=== PATIENT | female | born 1950 | race Caucasian/White ===

== ENCOUNTER → 2018-08-28 07:30 | Outpatient (CLI) | payer OTHER, SELFPAY ==
[2018-08-28 08:12] LABS: Add Manual Diff / Slide Review NO; Basophils Percent Auto 0.6 % (0-2); Eosinophils Percent Auto 2.6 % (2-4); Hematocrit 42.3 % (36-46); Hemoglobin 14.5 g/dL (12.0-16.0); Lymphocytes Percent Auto 50.6 % (25-40); Mean Corpuscular HGB Conc 34.2 % (30-36); Mean Corpuscular Hemoglobin 31.9 PG (26-34); Mean Corpuscular Volume 93.4 fL (80-100); Monocytes Percent Auto 9.1 % (3-14); Neutrophils Absolute Auto 2100 /uL (3000-5900); Neutrophils Percent Auto 37.1 % (50-75); Platelet Count 267 X10^3/uL (150-400); Red Blood Cell Count 4.53 X10^6/uL (4.0-5.2); White Blood Cell Count 5.5 X10^3/uL (4.5-11.0)
[2018-08-28 08:31] LABS: Alanine Aminotransferase 20 IU/L (9-52); Albumin 4.5 g/dL (3.5-5.0); Albumin Globulin Ratio 1.5 (1.0-2.8); Alkaline Phosphatase 74 U/L (38-126); Aspartate Aminotransferase 26 IU/L (14-36); BUN Creatinine Ratio 17.5 (6-22); Bilirubin Total 0.6 mg/dL (0.2-1.3); Blood Urea Nitrogen 14 mg/dL (7-17); Calcium 9.5 mg/dL (8.4-10.2); Carbon Dioxide 29 mmol/L (22-32); Chloride 103 mmol/L (98-107); Estimated Glomerular Filt Rate > 60.0 mL/min (>60); Glucose 97 mg/dL (80-110); HEMOLYSIS < 15 (0-50); Potassium 4.9 mmol/L (3.4-5.1); Sodium 143 mmol/L (137-145); Total Protein 7.5 g/dL (6.3-8.2)
[2018-08-28 08:52] LABS: Free T3, Triiodothyronine Free 2.83 pg/mL (2.77-5.27); Free T4, Direct Thyroxine 1.12 ng/dL (0.78-2.19)
[2018-08-28 09:06] LABS: Thyroid Stimulating Hormone 0.59 uIU/mL (0.47-4.68)
[2018-08-28 09:12] LABS: Ferritin 48.3 ng/mL (11.1-264)
[2018-08-28 09:26] LABS: Vitamin B12 > 1000 pg/mL (239-931)
== END ==
PROVIDERS: Visit Provider Naturopath
DX: E55.9 Vitamin D deficiency, unspecified (principal)
CPT/HCPCS: 36415; 80053; 82607; 82728; 83735; 84439; 84443; 84481; 85025; 86900; 86901

== ENCOUNTER → 2020-05-09 19:18 | Outpatient (ROUT) | payer OTHER, SELFPAY ==
[2020-05-09 19:35] LABS: Add Manual Diff / Slide Review NO; Basophils Absolute Auto 0 /uL (0-100); Basophils Percent Auto 0.3 % (0-2); Eosinophils Absolute Auto 100 /uL (0-450); Eosinophils Percent Auto 1.5 % (2-4); Hematocrit 40.3 % (36-46); Hemoglobin 13.7 g/dL (12.0-16.0); Lymphocytes Absolute Auto 2700 /uL (1100-4500); Lymphocytes Percent Auto 39.1 % (25-40); Mean Corpuscular HGB Conc 33.9 % (30-36); Mean Corpuscular Hemoglobin 32.2 PG (26-34); Mean Corpuscular Volume 95.2 fL (80-100); Monocytes Absolute Auto 600 /uL (0-900); Monocytes Percent Auto 8.3 % (3-14); Neutrophils Absolute Auto 3500 /uL (1500-7000); Neutrophils Percent Auto 50.8 % (50-75); Platelet Count 268 X10^3/uL (150-400); Red Blood Cell Count 4.24 X10^6/uL (4.0-5.2); White Blood Cell Count 6.9 X10^3/uL (4.5-11.0)
[2020-05-09 19:43] LABS: Uric Acid 3.9 mg/dL (2.5-6.2)
[2020-05-09 19:51] LABS: C-Reactive Protein Quant < 0.5 mg/dL (<1.0)
[2020-05-09 20:15] LABS: Erythrocyte Sedimentation Rate 4 MM/HR (0-20)
[2020-05-10 16:37] LABS: Rheumatoid Factor < 8.6 IU/mL (<12.0)
== END ==
PROVIDERS: Family Provider Internal Medicine; PCP Internal Medicine; Visit Provider Physician Assistant
DX: M79.644 Pain in right finger(s) (principal)
CPT/HCPCS: 84550; 85025; 85651; 86140; 86430

== ENCOUNTER → 2020-10-26 07:44 | Outpatient (CLI) | payer OTHER, SELFPAY ==
[2020-10-26 08:20] LABS: Add Manual Diff / Slide Review NO; Basophils Absolute Auto 0 /uL (0-100); Basophils Percent Auto 0.7 % (0-2); Eosinophils Absolute Auto 100 /uL (0-450); Eosinophils Percent Auto 2.4 % (2-4); Hematocrit 43.9 % (36-46); Hemoglobin 14.4 g/dL (12.0-16.0); Lymphocytes Absolute Auto 3300 /uL (1100-4500); Mean Corpuscular HGB Conc 32.8 % (30-36); Mean Corpuscular Hemoglobin 31.7 PG (26-34); Mean Corpuscular Volume 96.7 fL (80-100); Monocytes Absolute Auto 500 /uL (0-900); Monocytes Percent Auto 7.5 % (3-14); Neutrophils Absolute Auto 2100 /uL (1500-7000); Neutrophils Percent Auto 35.4 % (50-75); Platelet Count 256 X10^3/uL (150-400); Red Blood Cell Count 4.54 X10^6/uL (4.0-5.2); Red Cell Distribution Width 13.1 % (11.6-14.8); White Blood Cell Count 6.1 X10^3/uL (4.5-11.0)
[2020-10-26 08:35] LABS: Alanine Aminotransferase 13 IU/L (<35); Albumin 4.2 g/dL (3.5-5.0); Albumin Globulin Ratio 1.6 (1.0-2.8); Alkaline Phosphatase 81 U/L (38-126); Aspartate Aminotransferase 23 IU/L (14-36); BUN Creatinine Ratio 17.4 (6-22); Bilirubin Total 0.7 mg/dL (0.2-1.3); Blood Urea Nitrogen 15 mg/dL (7-17); Calcium 9.7 mg/dL (8.4-10.2); Carbon Dioxide 30 mmol/L (22-32); Chloride 103 mmol/L (98-107); Cholesterol 244 mg/dL (140-199); Estimated Glomerular Filt Rate > 60.0 mL/min (>60); Globulin 2.7 g/dL (1.7-4.1); Glucose 94 mg/dL (80-110); HDL Cholesterol 91 mg/dL (40-60); HEMOLYSIS < 15 (0-50); LDL Cholesterol Calculated 138 mg/dL (<100); Potassium 4.3 mmol/L (3.4-5.1); Sodium 136 mmol/L (137-145); Total Protein 6.9 g/dL (6.3-8.2); Triglycerides 74 mg/dL (35-150)
== END ==
PROVIDERS: Family Provider Internal Medicine; PCP Physician Assistant; Referring Provider Physician Assistant; Visit Provider Physician Assistant
DX: Z13.9 Encounter for screening, unspecified (principal)
CPT/HCPCS: 36415; 80053; 80061; 85025

== ENCOUNTER → 2021-01-02 12:39 | Outpatient (CLI) | payer OTHER, SELFPAY ==
--- NOTE | 2021-01-02 12:42 | DI.US.S_ITS ---
PROCEDURE: US PELVIC COMPLETE INDICATIONS: PRESSURE TECHNIQUE: Real-time scanning was performed of the pelvic organs, with image documentation. Additional endovaginal scanning was necessary due to incomplete visualization of the adnexal and endometrial structures by transabdominal scanning. COMPARISON: None. FINDINGS: Uterus: Uterus is normal in size at 5.7 x 2.2 x 4.1 cm. The endometrium measures 3.6 mm in combined thickness. Complex endometrial endocervical fluid. Ovaries: Ovaries are normal bilaterally. No adnexal masses seen. Other: No pathologic free abdominal or pelvic fluid. IMPRESSION: Small amount of endometrial and endocervical complex free fluid; otherwise normal endometrial complex and no source for pelvic pressure is identified. Recommend short-term follow-up pelvic ultrasound in 6 weeks to assess for interval resolution. Dictated by: Florentino Still [facility] Interpreted: Zunilda Liu MD on 01/02/2021 at 14:48 Approved by: Zunilda Liu MD, PhD on 01/02/2021 at 15:56
[2021-01-02 13:30] LABS: Add Manual Diff / Slide Review NO; Basophils Absolute Auto 0 /uL (0-100); Basophils Percent Auto 0.6 % (0-2); Eosinophils Absolute Auto 100 /uL (0-450); Hematocrit 42.1 % (36-46); Hemoglobin 14.6 g/dL (12.0-16.0); Lymphocytes Absolute Auto 2000 /uL (1100-4500); Lymphocytes Percent Auto 29.9 % (25-40); Mean Corpuscular HGB Conc 34.6 % (30-36); Mean Corpuscular Volume 95.3 fL (80-100); Monocytes Absolute Auto 800 /uL (0-900); Monocytes Percent Auto 11.3 % (3-14); Neutrophils Absolute Auto 3900 /uL (1500-7000); Neutrophils Percent Auto 57.2 % (50-75); Platelet Count 223 X10^3/uL (150-400); Red Blood Cell Count 4.42 X10^6/uL (4.0-5.2); Red Cell Distribution Width 12.6 % (11.6-14.8); White Blood Cell Count 6.8 X10^3/uL (4.5-11.0)
[2021-01-02 13:34] LABS: Appearance Urine UA CLEAR; Bilirubin Urine UA NEGATIVE (NEGATIVE); Color Urine UA YELLOW; Glucose Urine UA NEGATIVE (Negative); Ketones Urine UA TRACE (NEGATIVE); Leukocyte Esterase Urine UA NEGATIVE (NEGATIVE); Nitrite Urine UA NEGATIVE (Negative); Occult Blood Urine UA 1+ (Negative); Protein Urine UA NEGATIVE (Negative); Specific Gravity Urine UA >=1.030 (1.000-1.035); Urobilinogen Urine UA 0.2 E.U./dL (0.2)
[2021-01-02 13:42] LABS: Amorphous Sediment Urine 1+; Bacteria Urine Occasional (0-1); Mucus Urine 1+ (Negative); RBC Urine 1-5/HPF (0-5/HPF); Squamous Epithelial Cell Urine 5-10 /HPF (0-5/HPF); WBC Urine 1-5/HPF (0-5/HPF)
[2021-01-02 13:44] LABS: Alanine Aminotransferase 12 IU/L (<35); Albumin 4.4 g/dL (3.5-5.0); Albumin Globulin Ratio 1.5 (1.0-2.8); Alkaline Phosphatase 85 U/L (38-126); Aspartate Aminotransferase 25 IU/L (14-36); Bilirubin Total 0.3 mg/dL (0.2-1.3); Blood Urea Nitrogen 21 mg/dL (7-17); Calcium 9.6 mg/dL (8.4-10.2); Carbon Dioxide 28 mmol/L (22-32); Chloride 100 mmol/L (98-107); Cholesterol 230 mg/dL (140-199); Estimated Glomerular Filt Rate > 60.0 mL/min (>60); Globulin 2.9 g/dL (1.7-4.1); Glucose 109 mg/dL (80-110); HDL Cholesterol 66 mg/dL (40-60); HEMOLYSIS < 15 (0-50); LDL Cholesterol Calculated 136 mg/dL (<100); Potassium 4.3 mmol/L (3.4-5.1); Sodium 135 mmol/L (137-145); Total Protein 7.3 g/dL (6.3-8.2); Triglycerides 140 mg/dL (35-150)
[2021-01-02 14:19] LABS: Cancer Antigen 125 < 5.5 U/mL (0-35)
== END ==
PROVIDERS: Family Provider Internal Medicine; PCP Physician Assistant; Referring Provider Physician Assistant; Visit Provider Physician Assistant
DX: R10.2 Pelvic and perineal pain (principal); E78.00 Pure hypercholesterolemia, unspecified
CPT/HCPCS: 36415; 76830; 76856; 80053; 80061; 81001; 85025; 86304; 87086

== ENCOUNTER → 2021-06-21 07:51 | Outpatient (CLI) | payer OTHER, SELFPAY | PROVIDERS: Family Provider Physician Assistant; PCP Physician Assistant; Visit Provider Physician Assistant | DX: N39.0 Urinary tract infection, site not specified (principal) | CPT/HCPCS: 87077; 87086; 87186 ==

== ENCOUNTER → 2021-08-16 09:56 | Outpatient (CLI) | payer OTHER, SELFPAY ==
--- NOTE | 2021-08-16 09:57 | DI.MG.S_ITS ---
BILATERAL DIGITAL SCREENING MAMMOGRAM 3D/2D WITH CAD: 08/16/2021 CLINICAL: Routine screening. Comparison is made to exams dated: 06/15/2020 mammogram, 01/12/2019 mammogram, and 12/27/2017 mammogram - [facility]. The tissue of both breasts is heterogeneously dense. This may lower the sensitivity of mammography. Current study was also evaluated with a Computer Aided Detection (CAD) system. No significant masses, calcifications, or other findings are seen in either breast. There has been no significant interval change. IMPRESSION: NEGATIVE There is no mammographic evidence of malignancy. A 1 year screening mammogram is recommended. This exam was interpreted at Station ID: [id number]. NOTE: For mammograms, a report in lay terms will be sent to the patient. Approximately 15% of breast malignancies will not be visualized mammographically. In the management of a palpable breast mass, a negative mammogram must not discourage biopsy of a clinically suspicious lesion. Electronically Signed By: Henrique coombs/elmer:08/16/2021 11:16:04 letter sent: Normal Exam ACR BI-RADS Category 1: Negative [id number]
== END ==
PROVIDERS: Family Provider Physician Assistant; PCP Physician Assistant; Referring Provider Physician Assistant; Visit Provider Physician Assistant
DX: Z12.31 Encounter for screening mammogram for malignant neoplasm of breast (principal)
CPT/HCPCS: 77063; 77067

== ENCOUNTER 2021-09-04 11:15 | Outpatient (RCR) | payer OTHER, SELFPAY ==
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
--- NOTE | 2021-06-15 10:20 | PT.OPPOC ---
Physical, Occupational & Speech Therapy At [facility] Current Diagnoses Impingement syndrome of right shoulder (06/15/21) Visit Care Team Role Provider Type Klaudia Dominguez PA-C Family Provider Non-Staff Primary Care Provider Specialty: Internal Medicine Address: [address] [place] [address], [id number] Email: [email or web address] Geraldo Alvarez MD Attending Provider Physician Referring Provider Specialty: Orthopedic Surgery Address: [address] [place] [address], [id number] Email: [email or web address] Plan Of Care PT-OP-T Assessment and Plan Start: 06/15/21 10:00 Freq: Status: Active Protocol: Document 06/15/21 10:00 (Rec: 06/15/21 10:20 [email or web address]) Physical Therapy Assessment Rehab Potential Rehabilitation Potential Excellent Evaluation Complexity Number of Personal Factors/Comorbidities 0 Number of Body Systems Impaired 1-2 Clinical Presentation at Evaluation Stable Impairments Impairments Functional Activities, Functional Mobility,Pain, Posture,ROM,Soft Tissue Mobility,Strength Goals return to sports Impairment discomfort during golfing, paddle boarding and mountain biking Short Term Goal (STG) pt will show improved R shoulder strength and stability to reach overhead without painful arc sign STG Duration 3 weeks Usp Goal (LTG) pt will be able to fully return to sports without discomfort LTG Duration 6 weeks rom Impairment decreased R shoulder ROM Short Term Goal (STG) pt will show improved R shoulder ROM by 20 degrees in all plane without pain STG Duration 3 weeks Coating Operator Goal (LTG) pt will be able to reach for cupboard and behind her back without discomfort. LTG Duration 6 weeks Quickdash Impairment pt scores 54 on quickdash Short Term Goal (STG) pt will show improve shoulder mobility and strength to score <30 on quickdash STG Duration 3 weeks Usp Goal (LTG) pt will show improve shoulder mobility and strength to score <20 on quickdash LTG Duration 6 weeks Assessment Summary Assessment Abbey is 70yo active and healthy female here for R shoulder pain since mid-April. Upon assessment, pt shows signs of R shoulder impingement who is painful in all closed pack position (ABD, ADD, ER and IR) possibly d/t her significant anterior translated humerus. Her pain and ROM immediately improved after posterior glide of GHJ mobilization. She will benefit from skilled therapy to improve shoulder ROM and strengthen her RTC to stabilize her humeral head therefore she can participate paddle boarding, golfing and ADLs without discomfort again. Physical Therapy Plan Frequency and Duration Frequency of Treatment 1-2x/wk Duration of Treatment 6 weeks Plan of Care Start Date 06/15/21 Plan of Care End Date 07/30/21 Therapeutic Interventions Therapeutic Interventions Home Exercise Program,Joint Mobilizations,Manual Therapy, Neuromuscular Re-education, Patient/Caregiver Education, Self-Care/Home Management,Soft Tissue Mobilization,Taping, Therapeutic Activities, Therapeutic Exercises Modalities Cold Pack/Ice Massage,Electric Stimulation,Hot Packs, Infrared Therapy,Ultrasound Next Visit Focus/Plan Next Note Type Treatment Note Next Visit Plan review her HEP STM on pecs, and RTC post glide of humeral head. SL shoulder ER Plan of Care Dates Plan of Care Start Date 06/15/21 Plan of Care End Date 07/30/21 Electronically Signed by: Christina Nowak, PT 06/15/21 1020 Please Sign and Return: I have reviewed this Plan of Care and certify that the skilled therapy services above are required to meet the patient?s needs. Physician Signature Date Printed Name and Credentials Clinical Instructor Signature Printed Name and Credentials
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
--- NOTE | 2021-08-16 09:11 | PT.OPPOC ---
Physical, Occupational & Speech Therapy At [facility] Current Diagnoses Impingement syndrome of right shoulder (08/16/21) Visit Care Team Role Provider Type Klaudia Dominguez PA-C Family Provider Non-Staff Primary Care Provider Specialty: Internal Medicine Address: [address] [place] [address], [id number] Email: [email or web address] Geraldo Alvarez MD Attending Provider Physician Referring Provider Specialty: Orthopedic Surgery Address: [address] [place] [address], [id number] Email: [email or web address] Plan Of Care PT-OP-T Assessment and Plan Start: 06/15/21 10:00 Freq: Status: Active Protocol: Document 08/16/21 08:14 HH (Rec: 08/16/21 09:10 HH [id number]) Physical Therapy Assessment Goals return to sports Impairment discomfort during golfing, paddle boarding and mountain biking Short Term Goal (STG) 08/16 pt shows improved shoulder strength and ROM but still has painful arc. pt will show improved R shoulder strength and stability to reach overhead without painful arc sign STG Duration 3 weeks Hatchery Helper Goal (LTG) pt will be able to fully return to sports without discomfort LTG Duration 6 weeks rom Impairment decreased R shoulder ROM Short Term Goal (STG) 08/16 goal met pt will show improved R shoulder ROM by 20 degrees in all plane without pain STG Duration 3 weeks Hatchery Helper Goal (LTG) pt will be able to reach for cupboard and behind her back without discomfort. LTG Duration 6 weeks Quickdash Impairment pt scores 54 on quickdash Short Term Goal (STG) pt will show improve shoulder mobility and strength to score <30 on quickdash STG Duration 3 weeks Nursing Home Goal (LTG) pt will show improve shoulder mobility and strength to score <20 on quickdash LTG Duration 6 weeks Assessment Summary Assessment pt was last seen 07/07 d/t vacation. She returned today with good progress on ROM and strength but still has impingement symptoms. Although She has been doing moLiquidnetin biking and crosscountry skiiing, she still has difficulty reaching behind her back. There's still obvious anterior head translation with overhead reaching. This session focused on mobilizing posterior capsule and her ROM has significant improved. Provided lat stretch and post capsule stretch. Expect to DC her in 2 weeks. Physical Therapy Plan Frequency and Duration Frequency of Treatment 1-2x/wk Duration of Treatment 6 weeks Plan of Care Start Date 08/16/21 Plan of Care End Date 09/30/21 Therapeutic Interventions Therapeutic Interventions Home Exercise Program,Joint Mobilizations,Manual Therapy, Neuromuscular Re-education, Patient/Caregiver Education, Self-Care/Home Management,Soft Tissue Mobilization,Taping, Therapeutic Activities, Therapeutic Exercises Next Visit Focus/Plan Next Note Type Treatment Note Next Visit Plan review her HEP STM on pecs, and RTC post glide of humeral head. issue HEP for week by week progression due to pt leaving [facility] x4 weeks Plan of Care Dates Plan of Care Start Date 08/16/21 Plan of Care End Date 09/30/21 Electronically Signed by: Christina Nowak, PT 08/16/21 0992 Please Sign and Return: I have reviewed this Plan of Care and certify that the skilled therapy services above are required to meet the patient?s needs. Physician Signature Date Printed Name and Credentials Clinical Instructor Signature Printed Name and Credentials
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
== END 2021-11-14 09:32 ==
LOC: PHYS 11:15
PROVIDERS: Family Provider Physician Assistant; PCP Physician Assistant; Referring Provider Orthopaedic Surgery; Visit Provider Orthopaedic Surgery
DX: M75.41 Impingement syndrome of right shoulder (principal)
CPT/HCPCS: 97110; 97140; 97161

== ENCOUNTER → 2022-08-23 09:16 | Outpatient (CLI) | payer OTHER, SELFPAY ==
--- NOTE | 2022-08-23 09:17 | DI.MG.S_ITS ---
BILATERAL DIGITAL SCREENING MAMMOGRAM 3D/2D WITH CAD: 08/23/2022 CLINICAL: Routine screening. Comparison is made to exams dated: 08/16/2021 mammogram - [facility], 06/15/2020 mammogram, and 01/12/2019 mammogram - [facility]. Both breasts are heterogeneously dense, which may obscure small masses (category c / 51-75% glandular tissue). Current study was also evaluated with a Computer Aided Detection (CAD) system. There are linear fine rim calcifications in the right breast at 8 o'clock middle depth. These are increased in number. No other significant masses, calcifications, or other findings are seen in either breast. IMPRESSION: INCOMPLETE: NEEDS ADDITIONAL IMAGING EVALUATION The linear fine rim calcifications in the right breast are indeterminate. Magnification views as well as additional views with possible ultrasound are recommended. Based on the Tyrer Cuzick model (a risk assessment model) the patient's lifetime risk is 8.7% and her 10 year risk is 6.5%. According to the ACR, ACS, and NCCN guidelines, an annual breast MRI exam along with mammogram is recommended if the patient's lifetime risk is 20% or greater. This exam was interpreted at Station ID: [id number]. NOTE: For mammograms, a report in lay terms will be sent to the patient. Approximately 15% of breast malignancies will not be visualized mammographically. In the management of a palpable breast mass, a negative mammogram must not discourage biopsy of a clinically suspicious lesion. Electronically Signed By: Lauren briggs/elmer:08/23/2022 13:29:25 letter sent: Additional Imaging Needed ACR BI-RADS Category 0: Incomplete [id number]
== END ==
PROVIDERS: Family Provider Physician Assistant; PCP Physician Assistant; Referring Provider Physician Assistant; Visit Provider Physician Assistant
DX: Z12.31 Encounter for screening mammogram for malignant neoplasm of breast (principal)
CPT/HCPCS: 77063; 77067

== ENCOUNTER → 2022-09-28 10:14 | Outpatient (CLI) | payer OTHER, SELFPAY ==
--- NOTE | 2022-09-28 | DI.MG.S_ITS ---
UNILATERAL RIGHT DIGITAL DIAGNOSTIC MAMMOGRAM 3D/2D WITH ADDITIONAL VIEWS: 09/28/2022 CLINICAL: Additional evaluation requested from prior study. Comparison is made to exams dated: 08/23/2022 mammogram, 08/16/2021 mammogram - [facility], and 06/15/2020 mammogram - [facility]. The right breast is heterogeneously dense, which may obscure small masses (category c / 51-75% glandular tissue). There are linear fine rim calcifications in the right breast at 8 o'clock middle depth. These are not significantly changed. No other significant masses or calcifications are seen in the breast. IMPRESSION: PROBABLY BENIGN The linear fine rim calcifications in the right breast are probably benign. A follow-up mammogram in 6 months is recommended. A follow-up mammogram in 6 months is recommended to demonstrate stability. Based on the Tyrer Cuzick model (a risk assessment model) the patient's lifetime risk is 8.7% and her 10 year risk is 6.5%. According to the ACR, ACS, and NCCN guidelines, an annual breast MRI exam along with mammogram is recommended if the patient's lifetime risk is 20% or greater. This exam was interpreted at Station ID: [id number]. NOTE: For mammograms, a report in lay terms will be sent to the patient. Approximately 15% of breast malignancies will not be visualized mammographically. In the management of a palpable breast mass, a negative mammogram must not discourage biopsy of a clinically suspicious lesion. Electronically Signed By: Prabhu Hudson M.D., jr/elmer:09/28/2022 10:31:28 letter sent: Followup Recommended ACR BI-RADS Category 3: Probably benign [id number]
== END ==
PROVIDERS: Family Provider Physician Assistant; PCP Physician Assistant; Referring Provider Physician Assistant; Visit Provider Physician Assistant
DX: R92.8 Other abnormal and inconclusive findings on diagnostic imaging of breast (principal); R92.1 Mammographic calcification found on diagnostic imaging of breast
CPT/HCPCS: 77065; G0279

== ENCOUNTER → 2023-08-24 10:08 | Outpatient (CLI) | payer OTHER, SELFPAY ==
[2023-08-24 11:21] LABS: Influenza A - CEPHEID Flu A NEGATIVE (NEGATIVE); Influenza B - CEPHEID Flu B NEGATIVE (NEGATIVE); Respiratory Syncytial Virus Negative (Negative)
[2023-08-24 11:33] LABS: COVID-19 CEPHEID 4-PLEX PCR POSITIVE (Negative)
== END ==
PROVIDERS: Family Provider Physician Assistant; PCP Physician Assistant; Visit Provider Registered Nurse
DX: J02.9 Acute pharyngitis, unspecified (principal)
CPT/HCPCS: 0241U

== ENCOUNTER → 2023-12-16 06:37 | Outpatient (CLI) | payer OTHER, SELFPAY ==
[2023-12-16 07:43] LABS: Add Manual Diff / Slide Review NO; Basophils Absolute Auto 0 /uL (0-100); Basophils Percent Auto 0.7 % (0-2); Eosinophils Absolute Auto 100 /uL (0-450); Eosinophils Percent Auto 2.3 % (2-4); Hematocrit 42.8 % (36-46); Hemoglobin 14.5 g/dL (12.0-16.0); Lymphocytes Absolute Auto 2900 /uL (1100-4500); Lymphocytes Percent Auto 48.1 % (25-40); Mean Corpuscular HGB Conc 33.9 % (30-36); Mean Corpuscular Hemoglobin 31.8 PG (26-34); Mean Corpuscular Volume 93.9 fL (80-100); Monocytes Absolute Auto 600 /uL (0-900); Monocytes Percent Auto 9.6 % (3-14); Neutrophils Absolute Auto 2300 /uL (1500-7000); Neutrophils Percent Auto 39.3 % (50-75); Platelet Count 251 X10^3/uL (150-400); Red Blood Cell Count 4.56 X10^6/uL (4.0-5.2); Red Cell Distribution Width 13.1 % (11.6-14.8)
[2023-12-16 08:02] LABS: Alanine Aminotransferase 15 IU/L (<35); Albumin Globulin Ratio 1.2 (1.0-2.8); Alkaline Phosphatase 77 U/L (38-126); Aspartate Aminotransferase 28 IU/L (14-36); BUN Creatinine Ratio 22.5 (6-22); Bilirubin Total 0.9 mg/dL (0.2-1.3); Blood Urea Nitrogen 18 mg/dL (7-17); Calcium 9.3 mg/dL (8.4-10.2); Carbon Dioxide 27 mmol/L (22-32); Chloride 108 mmol/L (98-107); Cholesterol 235 mg/dL (140-199); Estimated Glomerular Filt Rate > 60 mL/min (>60); Globulin 3.4 g/dL (1.7-4.1); Glucose 92 mg/dL (80-110); HDL Cholesterol 74 mg/dL (40-60); HEMOLYSIS 30 (0-50); LDL Cholesterol Calculated 148 mg/dL (<100); Potassium 4.3 mmol/L (3.4-5.1); Sodium 138 mmol/L (137-145); Total Protein 7.4 g/dL (6.3-8.2); Triglycerides 63 mg/dL (35-150)
[2023-12-16 08:15] LABS: Vitamin D 25 Hydroxy (D3) 49.6 ng/mL (30.0-100.0)
== END ==
PROVIDERS: Family Provider Physician Assistant; PCP Student in an Organized Health Care Education/Training Program; Referring Provider Student in an Organized Health Care Education/Training Program; Visit Provider Student in an Organized Health Care Education/Training Program
DX: E78.5 Hyperlipidemia, unspecified (principal); M85.80 Other specified disorders of bone density and structure, unspecified site
CPT/HCPCS: 36415; 80053; 80061; 82306; 85025

== ENCOUNTER → 2024-05-19 14:16 | Outpatient (CLI) | payer OTHER, SELFPAY ==
--- NOTE | 2024-05-19 | DI.CT.S_ITS ---
PROCEDURE: CT SINUS SCREEN WO CON INDICATIONS: CHRONIC PANSINUSITIS, POST NASAL DRIP, THROAT CLEARING TECHNIQUE: Noncontrast 3.0 mm axial images acquired from the frontal sinuses to the mid-sella, with coronal and sagittal reformats. For radiation dose reduction, the following was used: automated exposure control, adjustment of mA and/or kV according to patient size. COMPARISON: None. FINDINGS: Image quality: Excellent. Maxillary Sinuses: No bony remodeling or destruction. Sinuses are clear. Ethmoid Air Cells: No bony remodeling or destruction. Minimal mucosal thickening can be seen within the ethmoid air cells. Sphenoid Sinuses: No bony remodeling or destruction. Sinuses are clear. Frontal Sinuses: No bony remodeling or destruction. Sinuses are clear. Ostiomeatal Complexes: Ostiomeatal complexes are patent. No Emani cells. Miscellaneous: Visualized intra-orbital contents are normal. No inocencio bullosa or paradoxical turbinate curvature. No nasal septal deviation. IMPRESSION: No significant abnormality is seen, with minimal mucosal thickening noted within the ethmoid air cells. Dictated by: Michael Solares M.D. on 05/19/2024 at 16:38 Approved by: Michael Solares M.D. on 05/19/2024 at 16:39
== END ==
LOC: CT 14:17
PROVIDERS: Family Provider Physician Assistant; PCP Family Medicine; Referring Provider Otolaryngology; Visit Provider Otolaryngology
DX: J32.4 Chronic pansinusitis (principal); R09.82 Postnasal drip; R09.89 Other specified symptoms and signs involving the circulatory and respiratory systems; R53.83 Other fatigue; Z86.16 Personal history of COVID-19
CPT/HCPCS: 70486

== ENCOUNTER 2025-02-14 16:44 | Emergency (ER) | payer OTHER, SELFPAY ==
[2025-02-14] VITALS (16 sets, daily range): BP systolic 161–209; BP diastolic 77–98; PULSE 55–70; RESP 16–34; O2SAT 96–100; BMI 20.1
[2025-02-14 17:23] LABS: Add Manual Diff / Slide Review NO; Basophils Absolute Auto 0 /uL (0-100); Basophils Percent Auto 0.6 % (0-2); Eosinophils Absolute Auto 200 /uL (0-450); Hematocrit 42.2 % (36-46); Hemoglobin 14.3 g/dL (12.0-16.0); Lymphocytes Absolute Auto 2900 /uL (1100-4500); Lymphocytes Percent Auto 38.5 % (25-40); Mean Corpuscular Hemoglobin 32.2 PG (26-34); Mean Corpuscular Volume 94.8 fL (80-100); Monocytes Absolute Auto 700 /uL (0-900); Monocytes Percent Auto 8.9 % (3-14); Neutrophils Absolute Auto 3800 /uL (1500-7000); Platelet Count 253 X10^3/uL (150-400); Red Blood Cell Count 4.45 X10^6/uL (4.0-5.2); Red Cell Distribution Width 13.3 % (11.6-14.8); White Blood Cell Count 7.6 X10^3/uL (4.5-11.0)
[2025-02-14] MEDS: KETOROLAC 30 MG/ML VIAL 15 MG IV (17:25)
[2025-02-14 17:37] LABS: Alanine Aminotransferase 18 IU/L (<35); Albumin 4.3 g/dL (3.5-5.0); Albumin Globulin Ratio 1.6 (1.0-2.8); Alkaline Phosphatase 91 U/L (38-126); Aspartate Aminotransferase 28 IU/L (14-36); BUN Creatinine Ratio 24.2 (6-22); Bilirubin Total 0.3 mg/dL (0.2-1.3); Blood Urea Nitrogen 22 mg/dL (7-17); Calcium 9.4 mg/dL (8.4-10.2); Carbon Dioxide 28 mmol/L (22-32); Chloride 103 mmol/L (98-107); Estimated Glomerular Filt Rate > 60 mL/min (>60); Globulin 2.7 g/dL (1.7-4.1); Glucose 118 mg/dL (70-99); HEMOLYSIS < 15 (0-50); Lipase 210 U/L (23-300); Potassium 3.7 mmol/L (3.4-5.1); Sodium 138 mmol/L (137-145)
[2025-02-14] MEDS: ONDANSETRON 4 MG/2 ML INJ IV ×2 (17:43→20:52)
[2025-02-14] MEDS: HYDROMORPHONE 0.5 MG INJ IV (17:56)
--- NOTE | 2025-02-14 18:12 | ED.BACK ---
HPI - Back Pain/Injury General Chief Complaint: Back Pain/Injury Stated Complaint: back px moving to left side and center of body Time Seen by Provider: 02/14/25 18:11 History of Present Illness HPI Narrative: 74-year-old female presents with left flank pain started on on the right back from [facility] and then radiates to the left groin region thought it was her SI joint went to see the massage therapist on Saturday but got worse since then she has had a few episodes of nonbilious nonbloody nausea and vomiting. She did have a bowel movement earlier today that was normal and she did eat earlier but denies any chest pain shortness of breath hematuria dysuria or any history of kidney stone. Other than what is stated 14 point review of system is negative Related Data Home Medications Medication Instructions Recorded Confirmed estradiol 10 mcg vaginal tablet 10 mcg vaginal 2XW 08/24/23 04/02/24 Previous Rx's Medication Instructions Recorded hydrocodone 5 mg-acetaminophen 325 1 tab PO Q6H PRN pain #20 tabs 02/14/25 mg tablet ondansetron 4 mg disintegrating 4 mg PO Q6H PRN nausea and 02/14/25 tablet vomiting #30 tabs Allergies Allergy/AdvReac Type Severity Reaction Status Date / Time erythromycin base Allergy Unknown SWELLING/RA Verified 04/02/24 09:07 [ERYTHROMYCIN BASE] Review of Systems Review of Systems ROS Unobtainable: All systems reviewed & are unremarkable except as noted in HPI and below Patient History Medical History (Updated 02/14/25 @ 21:14 by Jose Alberto Gandhi, DO) Allergies (~1999) Osteopenia (~2020) Postmenopausal HRT (hormone replacement therapy) Hyperlipidemia Surgical History (Updated 04/14/24 @ 19:22 by Mago Lovell) Anesthesia Fracture, humerus (~2014) Spiral fracture of shaft of tibia (~1998) Fibula fracture (~1996) Radius fracture (~1984) Family History (Updated 04/14/24 @ 19:24 by Mago Lovell) Father Cancer Mother Cancer Brother Cancer Exam Narrative Exam Narrative: GENERAL: [74] year old patient appears stated age. Well-developed patient, in mild distress. HEAD: Atraumatic. Normocephalic. EYES: Pupils equal round and reactive. Extraocular motions intact. No scleral icterus. No injection or drainage. ENT: Nose without bleeding, purulent drainage. Throat without erythema, tonsillar hypertrophy or exudate. Airway patent. NECK: Trachea midline. Non tender CARDIOVASCULAR: Regular rate and rhythm without murmurs, gallops, or rubs. RESPIRATORY: Clear to auscultation. Breath sounds equal bilaterally. No wheezes, rales, or rhonchi. GASTROINTESTINAL: Abdomen soft, LLQ TTP but no r/r/g, nondistended. EXTREMITIES: No edema or joint tenderness. BACK: Nontender without deformity or crepitance. No flank tenderness. NEURO: AOx3. SKIN: No rash or erythema of visible areas Initial Vital Signs Initial Vital Signs: Vital Signs Pulse Rate 60 02/14/25 16:51 Respiratory Rate 16 02/14/25 16:51 Blood Pressure 169/81 H 02/14/25 16:51 Pulse Oximetry 97 02/14/25 16:51 Oxygen Delivery Method Room Air 02/14/25 16:51 Course Orders Ordered: ED Orders 02/14/25 17:05 Complete Blood Count AUTO DIFF Stat Comprehensive Metabolic Panel Stat Lipase Stat 02/14/25 18:20 CT abdomen pelvis w con Stat Ondansetron HCl (Ondansetron 4 Mg/2 Ml Inj) 4 mg IV NOW PRN PRN Reason: Nausea And Vomiting Last Admin: 02/14/25 17:43 Dose: 4 mg Documented By: PAMELLA Ondansetron HCl (Ondansetron 4 Mg Odt) 4 mg PO NOW PRN PRN Reason: Nausea And Vomiting Discontinued Medications Hydromorphone HCl (Hydromorphone 0.5 Mg Inj) 0.5 mg IV NOW ONE Stop: 02/14/25 17:53 Last Admin: 02/14/25 17:56 Dose: 0.5 mg Documented By: SPF Sodium Chloride (Normal Saline 0.9%) 1,000 mls @ 500 mls/hr IV BOLUS ONE Stop: 02/14/25 20:27 Last Admin: 02/14/25 18:29 Dose: Not Given Documented By: SPF Sodium Chloride (Normal Saline 0.9%) 1,000 mls @ 1,000 mls/hr IV BOLUS ONE Stop: 02/14/25 19:28 Last Infusion: 02/14/25 19:53 Dose: Infused Documented By: Admin: 02/14/25 18:36 Dose: 1,000 mls/hr Documented By: SPF Ketorolac Tromethamine (Ketorolac 30 Mg/Ml Vial) 15 mg IV NOW ONE Stop: 02/14/25 17:21 Last Admin: 02/14/25 17:25 Dose: 15 mg Documented By: PAMELLA Vital Signs Vital signs: Vital Signs - 8 hr 02/14/25 16:51 02/14/25 17:08 02/14/25 17:10 Pulse Rate 60 64 Respiratory Rate 16 Blood Pressure 169/81 H 206/98 H Pulse Oximetry 97 100 Oxygen Delivery Method Room Air 02/14/25 17:10 02/14/25 17:30 02/14/25 17:31 Pulse Rate 55 L 59 L 60 Respiratory Rate 17 19 Blood Pressure Pulse Oximetry 100 100 100 Oxygen Delivery Method Room Air Room Air 02/14/25 17:31 02/14/25 18:00 02/14/25 18:01 Pulse Rate 65 Respiratory Rate 24 Blood Pressure 209/90 H 181/87 H Pulse Oximetry 100 Oxygen Delivery Method 02/14/25 18:01 02/14/25 18:30 02/14/25 19:00 Pulse Rate 64 63 66 Respiratory Rate 34 H 20 Blood Pressure Pulse Oximetry 100 97 96 Oxygen Delivery Method Room Air Room Air MDM - Back Pain/Injury Lab Data 02/14/25 17:05 02/14/25 17:05 Labs: Lab Results 02/14/25 Range/Units 17:05 WBC 7.6 (4.5-11.0) X10^3/uL RBC 4.45 (4.0-5.2) X10^6/uL Hgb 14.3 (12.0-16.0) g/dL Hct 42.2 (36-46) % MCV 94.8 (80-100) fL MCH 32.2 (26-34) PG MCHC 34.0 (30-36) % RDW 13.3 (11.6-14.8) % Plt Count 253 (150-400) X10^3/uL Neut % (Auto) 50.0 (50-75) % Lymph % (Auto) 38.5 (25-40) % [place] % (Auto) 8.9 (3-14) % Eos % (Auto) 2.0 (2-4) % Baso % (Auto) 0.6 (0-2) % Neut # (Auto) 3800 (2898-7776) /uL Lymph # (Auto) 2900 (0500-8402) /uL [place] # (Auto) 700 (0-900) /uL Eos # (Auto) 200 (0-450) /uL Baso # (Auto) 0 (0-100) /uL Sodium 138 (137-145) mmol/L Potassium 3.7 (3.4-5.1) mmol/L Chloride 103 (98-107) mmol/L Carbon Dioxide 28 (22-32) mmol/L BUN 22 H (7-17) mg/dL Creatinine 0.91 (0.52-1.04) mg/dL Estimated GFR > 60 (>60) mL/min BUN/Creatinine Ratio 24.2 H (6-22) Glucose 118 H (70-99) mg/dL Calcium 9.4 (8.4-10.2) mg/dL Total Bilirubin 0.3 (0.2-1.3) mg/dL AST 28 (14-36) IU/L ALT 18 (<35) IU/L Alkaline Phosphatase 91 (38-126) U/L Total Protein 7.0 (6.3-8.2) g/dL Albumin 4.3 (3.5-5.0) g/dL Globulin 2.7 (1.7-4.1) g/dL Albumin/Globulin Ratio 1.6 (1.0-2.8) Lipase 210 (23-300) U/L Urine Dip Bedside Urine Glucose Negative Bedside Urine Bilirubin - Negative Bedside Urine Ketone +/- 5 Urine Specific [place] 1.005 Bedside Urine Occult Blood - Negative Bedside Urine pH 8.0 Bedside Urine Protein - Negative Bedside Urine Urobilinogen - Negative Bedside Urine Nitrite - Negative Bedside Urine Leukocytes - Negative Esterase Imaging Data CT scan - abdomen/pelvis: Radiologist's Impression: [address] [address] [address] Scan Report Signed Patient: Abbey Phipps MR#: [id number] : 1950 Acct:[id number] Age/Sex: 74 / F Date of Service: 02/14/25 Loc: ED Accession Number: [id number] Procedure: CT abdomen pelvis w con Ordering Provider: Jose Alberto Gandhi D.O. PROCEDURE: CT ABDOMEN PELVIS W CON INDICATIONS: LLQ/L flank pain TECHNIQUE: After the administration of intravenous contrast, axial sections acquired from the lung bases to the pubic symphysis. Coronal and sagittal reformats were performed. For radiation dose reduction, the following was used: automated exposure control, adjustment of mA and/or kV according to patient size. COMPARISON: None. FINDINGS: Image quality: Diagnostic. Lower Chest: No significant findings. ABDOMEN: Liver: No solid mass. Small cyst in the left liver. Gallbladder: No radiopaque gallstones or wall thickening. Biliary ducts: No biliary dilation. Pancreas: No ductal dilation. Cyst in the uncinate process measuring 1.2 cm, (2/56). No mural nodule seen. Spleen: Size is within normal limits. Adrenal Glands: No adrenal nodules. Kidneys and Ureters: No hydronephrosis. No solid mass. No complex renal cystic lesion which requires follow up. Stomach and Bowel: No diverticulitis. The appendix is not dilated. Possible small appendicoliths or concretions. No periappendiceal stranding. No small bowel obstruction. Subtle haziness to the fat surrounding the small bowel in the pelvis, (2/99). Peritoneum: No abnormal intraperitoneal fluid. No free air. Ventral Wall: No significant ventral hernia. Abdominal Nodes: No retroperitoneal or mesenteric adenopathy by size criteria. Vessels: Aorta and inferior vena cava are normal in size. PELVIS: Pelvic Organs: Anteverted uterus. Bladder: No bladder wall thickening, accounting for underdistention. Pelvic Nodes: No enlarged lymph nodes. Miscellaneous: No inguinal hernias are seen. Bones: No aggressive osseous abnormality. DDD. IMPRESSION: 1. Possible small bowel enteritis. 2. No small bowel obstruction. No appendicitis. 3. Cyst in the uncinate process of the pancreas measuring 1.2 cm. This could represent an IPMN. -Recommend follow-up CT pancreas or MRI in 2 years. Dictated by: Phil Quiñonez M.D. on 02/14/2025 at 20:33 Approved by: Phil Quiñonez M.D. on 02/14/2025 at 20:44 MDM Narrative Medical decision making narrative: All lab work, vital signs, nurse triage note, medication list, and all previous ER visits and all imaging modalities reviewed. Patient given Dilaudid Zofran and intravenous fluids. Differential diagnosis include kidney stone kidney infection diverticulitis pancreatitis. Patient will follow up with PCP this week. Clear liquid diet advance as tolerated. DC home on Zofran and [place]. Discharge Plan Departure Patient Disposition: Home Clinical Impression: Enteritis, Pancreas cyst Instructions: DI for Enteritis Activity Restrictions/Additional Instructions: Return with new or worsening symptoms. Take your medicines as directed. Follow up with PCP this week. Prescriptions: New hydrocodone-acetaminophen 5-325 mg tablet 1 tab PO Q6H PRN (Reason: pain) Qty: 20 0RF ondansetron 4 mg tablet,disintegrating 4 mg PO Q6H PRN (Reason: nausea and vomiting) Qty: 30 0RF No Action estradiol 10 mcg tablet 10 mcg vaginal 2XW Referrals: Slade Rogel DO [Primary Care Provider] - Stand Alone Forms: Patient Portal/API/Survey
--- NOTE | 2025-02-14 18:20 | DI.CT.S_ITS ---
PROCEDURE: CT ABDOMEN PELVIS W CON INDICATIONS: LLQ/L flank pain TECHNIQUE: After the administration of intravenous contrast, axial sections acquired from the lung bases to the pubic symphysis. Coronal and sagittal reformats were performed. For radiation dose reduction, the following was used: automated exposure control, adjustment of mA and/or kV according to patient size. COMPARISON: None. FINDINGS: Image quality: Diagnostic. Lower Chest: No significant findings. ABDOMEN: Liver: No solid mass. Small cyst in the left liver. Gallbladder: No radiopaque gallstones or wall thickening. Biliary ducts: No biliary dilation. Pancreas: No ductal dilation. Cyst in the uncinate process measuring 1.2 cm, (2/56). No mural nodule seen. Spleen: Size is within normal limits. Adrenal Glands: No adrenal nodules. Kidneys and Ureters: No hydronephrosis. No solid mass. No complex renal cystic lesion which requires follow up. Stomach and Bowel: No diverticulitis. The appendix is not dilated. Possible small appendicoliths or concretions. No periappendiceal stranding. No small bowel obstruction. Subtle haziness to the fat surrounding the small bowel in the pelvis, (2/99). Peritoneum: No abnormal intraperitoneal fluid. No free air. Ventral Wall: No significant ventral hernia. Abdominal Nodes: No retroperitoneal or mesenteric adenopathy by size criteria. Vessels: Aorta and inferior vena cava are normal in size. PELVIS: Pelvic Organs: Anteverted uterus. Bladder: No bladder wall thickening, accounting for underdistention. Pelvic Nodes: No enlarged lymph nodes. Miscellaneous: No inguinal hernias are seen. Bones: No aggressive osseous abnormality. DDD. IMPRESSION: 1. Possible small bowel enteritis. 2. No small bowel obstruction. No appendicitis. 3. Cyst in the uncinate process of the pancreas measuring 1.2 cm. This could represent an IPMN. -Recommend follow-up CT pancreas or MRI in 2 years. Dictated by: Phil Quiñonez M.D. on 02/14/2025 at 20:33 Approved by: Phil Quiñonez M.D. on 02/14/2025 at 20:44
[2025-02-14] MEDS: SODIUM CHLORIDE 0.9% 1,000 ML 1000 ML IV (18:36)
[2025-02-14] MEDS: HYDROMORPHONE 1 MG INJ IV (20:57)
[2025-02-14] MEDS: ONDANSETRON 4 MG ODT PREPACK 1 BOTTLE MISC (21:24)
[2025-02-14] MEDS: HYDROCODONE/ACET 5/325 PREPACK 1 BOTTLE MISC (21:24)
== END 2025-02-14 21:28 | disposition home or self-care (01) ==
PROVIDERS: Emergency Medicine; Emergency Provider Family Medicine; Family Provider Physician Assistant; PCP Family Medicine
DX: K52.9 Noninfective gastroenteritis and colitis, unspecified (principal); K86.2 Cyst of pancreas
CPT/HCPCS: 36415; 74177; 80053; 81003; 83690; 85025; 96361; 96374; 96375; 96376; 99284; J1171; J1885; J2405; Q9967

== ENCOUNTER → 2025-03-31 08:22 | Outpatient (CLI) | payer OTHER, SELFPAY ==
[2025-03-31 09:32] LABS: Add Manual Diff / Slide Review NO; Basophils Absolute Auto 100 /uL (0-100); Basophils Percent Auto 0.7 % (0-2); Eosinophils Absolute Auto 200 /uL (0-450); Hematocrit 43.2 % (36-46); Hemoglobin 14.7 g/dL (12.0-16.0); Lymphocytes Absolute Auto 3400 /uL (1100-4500); Lymphocytes Percent Auto 46.7 % (25-40); Mean Corpuscular HGB Conc 33.9 % (30-36); Mean Corpuscular Hemoglobin 32.1 PG (26-34); Mean Corpuscular Volume 94.6 fL (80-100); Monocytes Absolute Auto 700 /uL (0-900); Monocytes Percent Auto 9.3 % (3-14); Neutrophils Absolute Auto 2900 /uL (1500-7000); Neutrophils Percent Auto 40.3 % (50-75); Platelet Count 283 X10^3/uL (150-400); Red Blood Cell Count 4.57 X10^6/uL (4.0-5.2); Red Cell Distribution Width 13.1 % (11.6-14.8); White Blood Cell Count 7.2 X10^3/uL (4.5-11.0)
[2025-03-31 09:57] LABS: Alanine Aminotransferase 16 IU/L (<35); Albumin 4.4 g/dL (3.5-5.0); Albumin Globulin Ratio 1.8 (1.0-2.8); Alkaline Phosphatase 73 U/L (38-126); Aspartate Aminotransferase 27 IU/L (14-36); BUN Creatinine Ratio 22.5 (6-22); Bilirubin Total 0.8 mg/dL (0.2-1.3); Blood Urea Nitrogen 18 mg/dL (7-17); Calcium 9.7 mg/dL (8.4-10.2); Carbon Dioxide 28 mmol/L (22-32); Chloride 104 mmol/L (98-107); Cholesterol 245 mg/dL (140-199); Estimated Glomerular Filt Rate > 60 mL/min (>60); Globulin 2.5 g/dL (1.7-4.1); Glucose 88 mg/dL (70-99); HDL Cholesterol 88 mg/dL (40-60); HEMOLYSIS 28 (0-50); LDL Cholesterol Calculated 144 mg/dL (<100); Lipase 141 U/L (23-300); Potassium 4.7 mmol/L (3.4-5.1); Sodium 137 mmol/L (137-145); Total Protein 6.9 g/dL (6.3-8.2); Triglycerides 64 mg/dL (35-150)
[2025-03-31 10:28] LABS: TSH w/ Reflex to FT4 0.06 uIU/mL (0.47-4.68)
[2025-03-31 11:43] LABS: Free T4, Direct Thyroxine 1.26 ng/dL (0.78-2.19)
== END ==
PROVIDERS: Family Provider Family Medicine; PCP Family Medicine; Referring Provider Family Medicine; Visit Provider Family Medicine
DX: K86.2 Cyst of pancreas (principal); E78.5 Hyperlipidemia, unspecified; M85.80 Other specified disorders of bone density and structure, unspecified site
CPT/HCPCS: 36415; 80053; 80061; 83690; 84439; 84443; 85025

== ENCOUNTER 2025-04-06 07:30 | Outpatient (RCR) | payer OTHER, SELFPAY ==
--- NOTE | 2025-02-18 18:48 | PT.OIE ---
Current Diagnoses Hyperlipidemia, unspecified (02/18/25) Cyst of pancreas (02/18/25) Other specified disorders of bone density and structure, unspecified site (02/18/25) Strain of muscle, fascia and tendon of lower back, initial encounter (02/18/25) Past Medical History (Last Reviewed 02/15/25 @ 16:32 by Slade Rogel DO) Allergies (~1999) Hyperlipidemia Osteopenia (~2020) Postmenopausal HRT (hormone replacement therapy) Strain of left iliopsoas muscle Past Surgical History (Last Reviewed 02/15/25 @ 16:32 by Slade Rogel DO) Anesthesia Fibula fracture (~1996) Fracture, humerus (~2014) Radius fracture (~1984) Spiral fracture of shaft of tibia (~1998) Visit Care Team Role Provider Type Slade Rogel DO Attending Provider Physician Family Provider Primary Care Provider Referring Provider Specialty: Family Practice Address: [address] [place] [address] Email: [email or web address] Physical [facility] Initial Evaluation PT-OP-A Visit Information Start: 02/17/25 17:48 Freq: Status: Active Protocol: Document 02/18/25 15:19 [facility] (Rec: 02/18/25 18:47 [facility] [id number]) Out-Patient Physical Therapy Visit Information Visit Information Visit Type Initial Evaluation Visit Start Time 15:19 Visit Stop Time 16:10 Visit Number 1 Number of ASSIGNMENT OFFICER Visits 0 PT-OP-B Current Condition Start: 02/17/25 17:48 Freq: Status: Active Protocol: Document 02/18/25 15:19 [facility] (Rec: 02/18/25 18:47 [facility] [id number]) Current Condition History of Current Condition Onset Date 1 week ago Current Complaints L hip pain History of Current Condition Pt skiied over 650 miles [place] this season. IT gets mushy at the end of the season. L leg is shorter. Was trying to use R side more because typically doesn't use it. She went golfing then drove from [facility] and had inc pain when woke up here. She had a massage and it was better initially but the day after was worse. pain was in L hip and had migrated to ant hip. Went to the ER and Gave pain meds/anti nausea meds and urine testing, imaging and sent home. saw primary and he wasn't worried about the cyst on pancreas. Stopped hydrocodone d/t making her feel like a zombie and taking 500mg Naproxen and feels better. Has been to the chiro 2x. Hx SI pain but typically on R side but not as severe. Broke L leg 2x (fibula one time '99 and tibia other time '01). Has been sleeping most of the week and heating because it seems to help. Ice doesn't seem to help. Wears a 1/4 in lift for measured discrepancy. Does stretch and exercise daily. Treatment Goals Patient/Caregiver Goals be able to SUP, mtn bike, hike , golf PT-OP-C Subjective Start: 02/17/25 17:48 Freq: Status: Active Protocol: Document 02/18/25 15:19 [facility] (Rec: 02/18/25 18:47 [facility] [id number]) Patient Questionnaires Oswestry Low Back Index Oswestry Score 52% OP-PT Pain Assessment Location L hip Pain Location Details L buttocks Radiating Location L ant hip Pain Aggravating Factors Activity,Sitting,Lifting Other Pain Aggravating Factors foot up for shoes/socks Pain Alleviating Factors Heat,Medication,Lying Supine PT-OP-D Balance Start: 02/17/25 17:48 Freq: Status: Active Protocol: Document 02/18/25 15:19 [facility] (Rec: 02/18/25 18:47 [facility] [id number]) Balance Tests Single Limb Standing Single Limb- Right >30 sec Single Limb- Left 11 sec PT-OP-G Mobility & Gait Start: 02/17/25 17:48 Freq: Status: Active Protocol: Document 02/18/25 15:19 [facility] (Rec: 02/18/25 18:47 [facility] [id number]) OP Gait Assessment Comments Gait Comments Dec LLE stance time and push off PT-OP-J Posture/Palpation/Skin Start: 02/17/25 17:48 Freq: Status: Active Protocol: Document 02/18/25 15:19 [facility] (Rec: 02/18/25 18:47 [facility] [id number]) Posture Evaluation Hilda Postural Classification System Lumbar Protective Mechanism Left AP 0 Lumbar Protective Mechanism Right AP 1 Lumbar Protective Mechanism Left PA 1 Lumbar Protective Mechanism Right PA 1 Comments Posture Comments L genu recurvatum, R pelvic shear, rot R SB L PT-OP-K Range of Motion Start: 02/17/25 17:48 Freq: Status: Active Protocol: Document 02/18/25 15:19 [facility] (Rec: 02/18/25 18:47 [facility] [id number]) Lumbar Spine Range of Motion Lumbar Spine Active Percentage Flexion 80 Extension 50 Rotation Left 25 Rotation Right 45 Lateral Flexion Left 50 Lateral Flexion Right 50 Comments pain L B SB, ext PT-OP-L Special Tests Start: 02/17/25 17:48 Freq: Status: Active Protocol: Document 02/18/25 15:19 [facility] (Rec: 02/18/25 18:47 [facility] [id number]) Special Tests Lumbar Spine Special Tests march Test Results positive L Slump Test Results neg B PT-OP-M Strength Start: 02/17/25 17:48 Freq: Status: Active Protocol: Document 02/18/25 15:19 [facility] (Rec: 02/18/25 18:47 [facility] [id number]) Hip Strength Hip Manual Muscle Testing Right Flexion (L2) 4- Good- Extension (S1) 3+ Fair+ Abduction 4 Good External Rotation 5 Normal Internal Rotation 5 Normal Left Flexion (L2) 3 Fair Extension (S1) 3- Fair- Abduction 3+ Fair+ External Rotation 4- Good- Internal Rotation 4- Good- Comments pain hip flex Knee Strength Knee Manual Muscle Testing Right Flexion (S2) 5 Normal Extension (L3) 5 Normal Left Flexion (S2) 3+ Fair+ Extension (L3) 4 Good Comments pain flex Ankle/Foot Strength Ankle and Foot Manual Muscle Testing B Dorsiflexion (L4) 5 Normal Plantarflexion (S1) 5 Normal Comments seated B PT-OP-Q Treatments Start: 02/17/25 17:48 Freq: Status: Active Protocol: Document 02/18/25 15:19 [facility] (Rec: 02/18/25 18:47 [facility] [id number]) Therapeutic Exercises Supine Exercises hip rotation Supine Exercise Name ER/IR hooklying Side bilateral Reps/Minutes 5 Comments comfortable range w/core LTR Supine Exercise Name very small range Side bilateral Reps/Minutes 3 Manual Therapy Treatment Consent Patient gave verbal consent for manual Yes treatment Soft Tissue Mobilization lat Body Location L ITB Mobilization Type Rolling Intensity/Depth Moderate Body Position Hooklying ant Body Location L iliacus and distal psoas Mobilization Type Sustained Pressure Intensity/Depth Moderate Body Position Supine Joint Mobilizations innominate Comments flex L c/r hip Comments free the ball IR c/r and inf glide c/r Self-Care/Home Management Treatment Education Other Education 8min: edu that pain could be related to pelvis or spine but appears to be more related to pelvis. Edu that SI symptoms can cause groin pain. Edu on cont use heat and gradually inc time that she is upright. Edu to avoid twisting, bending and heavy activities and to walk gently for exercise gradually inc but not bike yet . PT-OP-T Assessment and Plan Start: 02/17/25 17:48 Freq: Status: Active Protocol: Document 02/18/25 15:19 [facility] (Rec: 02/18/25 18:47 [facility] [id number]) Physical Therapy Assessment Rehab Potential Rehabilitation Potential Good Evaluation Complexity Number of Personal Factors/Comorbidities 3 or More Number of Body Systems Impaired 4 or More Clinical Presentation at Evaluation Evolving Impairments Impairments Activity Tolerance,Balance, Functional Activities, Functional Mobility,Gait,Pain, Posture,ROM,Soft Tissue Mobility,Strength Goals activities Halfway Goal (LTG) Pt will be able to hike, bike, golf and do paddle sports w/o inc L SI or hip pain LTG Duration 04/29 strength Short Term Goal (STG) Pt will be indep w/HEP STG Duration 03/30 Halfway Goal (LTG) Pt will score at least 4+/5 on BLE MMT and at least 3/5 on all planes LPM to show improved stability to allow return to full active lifestyle LTG Duration 04/29 AR Impairment 52% Short Term Goal (STG) Pt will improve AR score to no greater than 36 % to show improved functional ability. STG Duration 03/28 Hem Marker Goal (LTG) Pt will improve AR score to no greater than 6% to show improved functional ability. LTG Duration 04/27 Assessment Summary Assessment Pt presents w/acute onset of L SI and L post lat hip pain that progressed into L ant hip pain 1 week ago after a long season of xc skiing and doing some golfing then driving 8 hours back to [place] and gardening the next day. She was in the ER on Saturday and has gotten slightly better since then w/seeing chiropractor. She has hx of SIJ pain but typically on R and does have a leg length discrepancy (3/4 in shorter on L measured by prior PT likely related to hx of tib and fib fractures on L. She is typically very active with yoga, hiking, mountain biking, skiing, Sup and occasionally golf. She has been unable to be active in the past week d/t pain and would benefit from skilled PT to address her current ROM and strength deficits that appears to be related to SIJ dysfunction. Physical Therapy Plan Frequency and Duration Frequency of Treatment 2x/Week Duration of treatment (weeks) 10 Plan of Care Start Date 02/18/25 Plan of Care End Date 04/29/25 Therapeutic Interventions Therapeutic Interventions Balance Training,Gait Training ,Home Exercise Program,Joint Mobilizations,Manual Therapy, Neuromuscular Re-education, Patient/Caregiver Education, Self-Care/Home Management,Soft Tissue Mobilization,Taping, Therapeutic Activities, Therapeutic Exercises Modalities Cold Pack/Ice Massage,Electric Stimulation,Hot Packs, Infrared Therapy,Traction- Mechanical,Ultrasound Next Visit Focus/Plan Next Note Type Treatment Note Next Visit Plan manual to L hip and innominate , work on lumbar spine, work on core stability, gentle hip and spinal stretching, hip abd strength
--- NOTE | 2025-02-18 18:48 | PT.OPPOC ---
Physical, Occupational & Speech Therapy At [facility] Current Diagnoses Hyperlipidemia, unspecified (02/18/25) Cyst of pancreas (02/18/25) Other specified disorders of bone density and structure, unspecified site (02/18/25) Strain of muscle, fascia and tendon of lower back, initial encounter (02/18/25) Visit Care Team Role Provider Type Salde Rogel DO Attending Provider Physician Family Provider Primary Care Provider Referring Provider Specialty: Family Practice Address: [address] [place] [address], [facility] Email: [email or web address] Plan Of Care PT-OP-B Current Condition Start: 02/17/25 17:48 Freq: Status: Active Protocol: Document 02/18/25 15:19 [facility] (Rec: 02/18/25 18:47 [facility] [id number]) Current Condition History of Current Condition Onset Date 1 week ago Current Complaints L hip pain History of Current Condition Pt skiied over 650 miles xc this season. IT gets mushy at the end of the season. L leg is shorter. Was trying to use R side more because typically doesn't use it. She went golfing then drove from [facility] and had inc pain when woke up here. She had a massage and it was better initially but the day after was worse. pain was in L hip and had migrated to ant hip. Went to the ER and Gave pain meds/anti nausea meds and urine testing, imaging and sent home. saw primary and he wasn't worried about the cyst on pancreas. Stopped hydrocodone d/t making her feel like a zombie and taking 500mg Naproxen and feels better. Has been to the chiro 2x. Hx SI pain but typically on R side but not as severe. Broke L leg 2x (fibula one time '99 and tibia other time '01). Has been sleeping most of the week and heating because it seems to help. Ice doesn't seem to help. Wears a 1/4 in lift for measured discrepancy. Does stretch and exercise daily. Treatment Goals Patient/Caregiver Goals be able to SUP, mtn bike, hike , golf PT-OP-T Assessment and Plan Start: 02/17/25 17:48 Freq: Status: Active Protocol: Document 02/18/25 15:19 [facility] (Rec: 02/18/25 18:47 [facility] [id number]) Physical Therapy Assessment Rehab Potential Rehabilitation Potential Good Evaluation Complexity Number of Personal Factors/Comorbidities 3 or More Number of Body Systems Impaired 4 or More Clinical Presentation at Evaluation Evolving Impairments Impairments Activity Tolerance,Balance, Functional Activities, Functional Mobility,Gait,Pain, Posture,ROM,Soft Tissue Mobility,Strength Goals activities Medical Office Scheduler Goal (LTG) Pt will be able to hike, bike, golf and do paddle sports w/o inc L SI or hip pain LTG Duration 04/29 strength Short Term Goal (STG) Pt will be indep w/HEP STG Duration 03/30 Alf Goal (LTG) Pt will score at least 4+/5 on BLE MMT and at least 3/5 on all planes LPM to show improved stability to allow return to full active lifestyle LTG Duration 04/29 AR Impairment 52% Short Term Goal (STG) Pt will improve AR score to no greater than 36 % to show improved functional ability. STG Duration 03/28 Medical Office Scheduler Goal (LTG) Pt will improve AR score to no greater than 6% to show improved functional ability. LTG Duration 04/27 Assessment Summary Assessment Pt presents w/acute onset of L SI and L post lat hip pain that progressed into L ant hip pain 1 week ago after a long season of xc skiing and doing some golfing then driving 8 hours back [place] [employer] [place] [employer] the next [place]. She was in the ER on Saturday and has gotten slightly better since then w/seeing chiropractor. She has hx of SIJ pain but typically on R and does have a leg length discrepancy (3/4 in shorter on L measured by prior PT likely related to hx of tib and fib fractures on L. She is typically very active with yoga, hiking, mountain biking, skiing, Sup and occasionally golf. She has been unable to be active in the past week d/t pain and would benefit from skilled PT to address her current ROM and strength deficits that appears to be related to SIJ dysfunction. Physical Therapy Plan Frequency and Duration Frequency of Treatment 2x/Week Duration of treatment (weeks) 10 Plan of Care Start Date 02/18/25 Plan of Care End Date 04/29/25 Therapeutic Interventions Therapeutic Interventions Balance Training,Gait Training ,Home Exercise Program,Joint Mobilizations,Manual Therapy, Neuromuscular Re-education, Patient/Caregiver Education, Self-Care/Home Management,Soft Tissue Mobilization,Taping, Therapeutic Activities, Therapeutic Exercises Modalities Cold Pack/Ice Massage,Electric Stimulation,Hot Packs, Infrared Therapy,Traction- Mechanical,Ultrasound Next Visit Focus/Plan Next Note Type Treatment Note Next Visit Plan manual to L hip and innominate , work on lumbar spine, work on core stability, gentle hip and spinal stretching, hip abd strength Plan of Care Dates Plan of Care Start Date 02/18/25 Plan of Care End Date 04/29/25 Electronically Signed by: Mell Daniel, PT 02/18/25 [id number] If you are in agreement with this Plan of Care, please return a signed and dated copy. I have reviewed this Plan of Care and certify that the skilled therapy services above are required to meet the patient?s needs. Physician Signature Date Printed Name and Credentials Clinical Instructor Signature Printed Name and Credentials
--- NOTE | 2025-02-23 16:59 | PT.OTN ---
Current Diagnoses Hyperlipidemia, unspecified (02/23/25) Cyst of pancreas (02/23/25) Other specified disorders of bone density and structure, unspecified site (02/23/25) Strain of muscle, fascia and tendon of lower back, initial encounter (02/23/25) Physical Therapy Treatment Note PT-OP-A Visit Information Start: 02/17/25 17:48 Freq: Status: Active Protocol: Document 02/23/25 09:48 [facility] (Rec: 02/23/25 16:59 [facility] [id number]) Out-Patient Physical Therapy Visit Information Visit Information Visit Type Treatment Note Visit Start Time 09:48 Visit Stop Time 10:30 Visit Number 2 Number of BUDGET MANAGER Visits 0 PT-OP-B Current Condition Start: 02/17/25 17:48 Freq: Status: Active Protocol: Document 02/18/25 15:19 [facility] (Rec: 02/18/25 18:47 [facility] [id number]) Current Condition History of Current Condition Onset Date 1 week ago Current Complaints L hip pain History of Current Condition Pt skiied over 650 miles xc this season. IT gets mushy at the end of the season. L leg is shorter. Was trying to use R side more because typically doesn't use it. She went golfing then drove from [facility] and had inc pain when woke up here. She had a massage and it was better initially but the day after was worse. pain was in L hip and had migrated to ant hip. Went to the ER and Gave pain meds/anti nausea meds and urine testing, imaging and sent home. saw primary and he wasn't worried about the cyst on pancreas. Stopped hydrocodone d/t making her feel like a zombie and taking 500mg Naproxen and feels better. Has been to the chiro 2x. Hx SI pain but typically on R side but not as severe. Broke L leg 2x (fibula one time '99 and tibia other time '01). Has been sleeping most of the week and heating because it seems to help. Ice doesn't seem to help. Wears a 1/4 in lift for measured discrepancy. Does stretch and exercise daily. Treatment Goals Patient/Caregiver Goals be able to SUP, mtn bike, hike , golf PT-OP-C Subjective Start: 02/17/25 17:48 Freq: Status: Active Protocol: Document 02/23/25 09:48 [facility] (Rec: 02/23/25 16:59 [facility] [id number]) OP-PT Subjective Patient Comments Patient Comments Pt reports saturday she felt good and didn't have to take meds. She did a 7 mile bike ride saturday. PT-OP-D Balance Start: 02/17/25 17:48 Freq: Status: Active Protocol: Document 02/18/25 15:19 [facility] (Rec: 02/18/25 18:47 [facility] [id number]) Balance Tests Single Limb Standing Single Limb- Right >30 sec Single Limb- Left 11 sec PT-OP-G Mobility & Gait Start: 02/17/25 17:48 Freq: Status: Active Protocol: Document 02/18/25 15:19 [facility] (Rec: 02/18/25 18:47 [facility] [id number]) OP Gait Assessment Comments Gait Comments Dec LLE stance time and push off PT-OP-J Posture/Palpation/Skin Start: 02/17/25 17:48 Freq: Status: Active Protocol: Document 02/18/25 15:19 [facility] (Rec: 02/18/25 18:47 [facility] [id number]) Posture Evaluation Hilda Postural Classification System Lumbar Protective Mechanism Left AP 0 Lumbar Protective Mechanism Right AP 1 Lumbar Protective Mechanism Left PA 1 Lumbar Protective Mechanism Right PA 1 Comments Posture Comments L genu recurvatum, R pelvic shear, rot R SB L PT-OP-K Range of Motion Start: 02/17/25 17:48 Freq: Status: Active Protocol: Document 02/18/25 15:19 [facility] (Rec: 02/18/25 18:47 [facility] [id number]) Lumbar Spine Range of Motion Lumbar Spine Active Percentage Flexion 80 Extension 50 Rotation Left 25 Rotation Right 45 Lateral Flexion Left 50 Lateral Flexion Right 50 Comments pain L B SB, ext PT-OP-L Special Tests Start: 02/17/25 17:48 Freq: Status: Active Protocol: Document 02/18/25 15:19 [facility] (Rec: 02/18/25 18:47 [facility] [id number]) Special Tests Lumbar Spine Special Tests march Test Results positive L Slump Test Results neg B PT-OP-M Strength Start: 02/17/25 17:48 Freq: Status: Active Protocol: Document 02/18/25 15:19 [facility] (Rec: 02/18/25 18:47 [facility] [id number]) Hip Strength Hip Manual Muscle Testing Right Flexion (L2) 4- Good- Extension (S1) 3+ Fair+ Abduction 4 Good External Rotation 5 Normal Internal Rotation 5 Normal Left Flexion (L2) 3 Fair Extension (S1) 3- Fair- Abduction 3+ Fair+ External Rotation 4- Good- Internal Rotation 4- Good- Comments pain hip flex Knee Strength Knee Manual Muscle Testing Right Flexion (S2) 5 Normal Extension (L3) 5 Normal Left Flexion (S2) 3+ Fair+ Extension (L3) 4 Good Comments pain flex Ankle/Foot Strength Ankle and Foot Manual Muscle Testing B Dorsiflexion (L4) 5 Normal Plantarflexion (S1) 5 Normal Comments seated B PT-OP-Q Treatments Start: 02/17/25 17:48 Freq: Status: Active Protocol: Document 02/23/25 09:48 [facility] (Rec: 02/23/25 16:59 [facility] [id number]) Therapeutic Exercises Prone Exercises plank Prone Exercise Name forearm and knees Side bilateral Reps/Minutes 20 sec Comments cues neck and spinal position Sidelying Exercises open book Side left Reps/Minutes 10 Other Exercises tail wags Side bilateral Reps/Minutes 8 Comments PT tactile cues for movement pattern bird dog Side bilateral Reps/Minutes 8 Comments cues for no rotation, dec range tracy pose Side bilateral Reps/Minutes [id number] cat cow Reps/Minutes 5 Comments min cues for head position Manual Therapy Treatment Consent Patient gave verbal consent for manual Yes treatment Soft Tissue Mobilization lumbar Body Location L QL and Es Comments w/post depression ant Comments 1. MFR to obliques w/open book 2. fascia along descending colon w/post dep Joint Mobilizations lumbar Comments Transverse glide T11, 12, L1 w /open book, L4 and 5 w/ant elevation innominate Comments L add c/r PT-OP-T Assessment and Plan Start: 02/17/25 17:48 Freq: Status: Active Protocol: Document 02/23/25 09:48 [facility] (Rec: 02/23/25 16:59 [facility] [id number]) Physical Therapy Assessment Goals activities Prison Goal (LTG) Pt will be able to hike, bike, golf and do paddle sports w/o inc L SI or hip pain LTG Duration 04/29 strength Short Term Goal (STG) Pt will be indep w/HEP STG Duration 03/30 Prison Goal (LTG) Pt will score at least 4+/5 on BLE MMT and at least 3/5 on all planes LPM to show improved stability to allow return to full active lifestyle LTG Duration 04/29 AR Impairment 52% Short Term Goal (STG) Pt will improve AR score to no greater than 36 % to show improved functional ability. STG Duration 03/28 Disability Aide Goal (LTG) Pt will improve AR score to no greater than 6% to show improved functional ability. LTG Duration 04/27 Assessment Summary Assessment Pt had improved SB L ROM after manual and B rotation w/dec pain noted w/motion. She did well with exercises w/cueing. Physical Therapy Plan Frequency and Duration Frequency of Treatment 2x/Week Duration of treatment (weeks) 10 Plan of Care Start Date 02/18/25 Plan of Care End Date 04/29/25 Next Visit Focus/Plan Next Note Type Treatment Note Next Visit Plan work on core strength advancement, MET for pelvis
--- NOTE | 2025-02-25 16:15 | PT.OTN ---
Current Diagnoses Hyperlipidemia, unspecified (02/25/25) Cyst of pancreas (02/25/25) Other specified disorders of bone density and structure, unspecified site (02/25/25) Strain of muscle, fascia and tendon of lower back, initial encounter (02/25/25) Physical Therapy Treatment Note PT-OP-A Visit Information Start: 02/17/25 17:48 Freq: Status: Active Protocol: Document 02/25/25 13:01 [facility] (Rec: 02/25/25 16:12 AB Laptop) Out-Patient Physical Therapy Visit Information Visit Information Visit Type Treatment Note Visit Note Visit [email or web address] Code: [email or web address] Visit Start Time 13:02 Visit Stop Time 13:45 Visit Number 3 PN by 03/21/2025 Number of CIRCUIT BREAKER MECHANIC Visits 1 PT-OP-B Current Condition Start: 02/17/25 17:48 Freq: Status: Active Protocol: Document 02/18/25 15:19 [facility] (Rec: 02/18/25 18:47 [facility] [id number]) Current Condition History of Current Condition Onset Date 1 week ago Current Complaints L hip pain History of Current Condition Pt skiied over 650 miles xc this season. IT gets mushy at the end of the season. L leg is shorter. Was trying to use R side more because typically doesn't use it. She went golfing then drove from [facility] and had inc pain when woke up here. She had a massage and it was better initially but the day after was worse. pain was in L hip and had migrated to ant hip. Went to the ER and Gave pain meds/anti nausea meds and urine testing, imaging and sent home. saw primary and he wasn't worried about the cyst on pancreas. Stopped hydrocodone d/t making her feel like a zombie and taking 500mg Naproxen and feels better. Has been to the chiro 2x. Hx SI pain but typically on R side but not as severe. Broke L leg 2x (fibula one time '99 and tibia other time '01). Has been sleeping most of the week and heating because it seems to help. Ice doesn't seem to help. Wears a 1/4 in lift for measured discrepancy. Does stretch and exercise daily. Treatment Goals Patient/Caregiver Goals be able to SUP, mtn bike, hike , golf PT-OP-C Subjective Start: 02/17/25 17:48 Freq: Status: Active Protocol: Document 02/25/25 13:01 [facility] (Rec: 02/25/25 16:12 AB Laptop) OP-PT Subjective Patient Comments Patient Comments Patient reports she is about the same. L glute soreness and stiffness start of session per patient. PT-OP-D Balance Start: 02/17/25 17:48 Freq: Status: Active Protocol: Document 02/18/25 15:19 [facility] (Rec: 02/18/25 18:47 [facility] [id number]) Balance Tests Single Limb Standing Single Limb- Right >30 sec Single Limb- Left 11 sec PT-OP-G Mobility & Gait Start: 02/17/25 17:48 Freq: Status: Active Protocol: Document 02/18/25 15:19 [facility] (Rec: 02/18/25 18:47 [facility] [id number]) OP Gait Assessment Comments Gait Comments Dec LLE stance time and push off PT-OP-J Posture/Palpation/Skin Start: 02/17/25 17:48 Freq: Status: Active Protocol: Document 02/18/25 15:19 [facility] (Rec: 02/18/25 18:47 [facility] [id number]) Posture Evaluation Hilda Postural Classification System Lumbar Protective Mechanism Left AP 0 Lumbar Protective Mechanism Right AP 1 Lumbar Protective Mechanism Left PA 1 Lumbar Protective Mechanism Right PA 1 Comments Posture Comments L genu recurvatum, R pelvic shear, rot R SB L PT-OP-K Range of Motion Start: 02/17/25 17:48 Freq: Status: Active Protocol: Document 02/18/25 15:19 [facility] (Rec: 02/18/25 18:47 [facility] [id number]) Lumbar Spine Range of Motion Lumbar Spine Active Percentage Flexion 80 Extension 50 Rotation Left 25 Rotation Right 45 Lateral Flexion Left 50 Lateral Flexion Right 50 Comments pain L B SB, ext PT-OP-L Special Tests Start: 02/17/25 17:48 Freq: Status: Active Protocol: Document 02/18/25 15:19 [facility] (Rec: 02/18/25 18:47 [facility] [id number]) Special Tests Lumbar Spine Special Tests march Test Results positive L Slump Test Results neg B PT-OP-M Strength Start: 02/17/25 17:48 Freq: Status: Active Protocol: Document 02/18/25 15:19 [facility] (Rec: 02/18/25 18:47 [facility] [id number]) Hip Strength Hip Manual Muscle Testing Right Flexion (L2) 4- Good- Extension (S1) 3+ Fair+ Abduction 4 Good External Rotation 5 Normal Internal Rotation 5 Normal Left Flexion (L2) 3 Fair Extension (S1) 3- Fair- Abduction 3+ Fair+ External Rotation 4- Good- Internal Rotation 4- Good- Comments pain hip flex Knee Strength Knee Manual Muscle Testing Right Flexion (S2) 5 Normal Extension (L3) 5 Normal Left Flexion (S2) 3+ Fair+ Extension (L3) 4 Good Comments pain flex Ankle/Foot Strength Ankle and Foot Manual Muscle Testing B Dorsiflexion (L4) 5 Normal Plantarflexion (S1) 5 Normal Comments seated B PT-OP-Q Treatments Start: 02/17/25 17:48 Freq: Status: Active Protocol: Document 02/25/25 13:01 AB (Rec: 02/25/25 16:12 AB Laptop) Therapeutic Exercises Supine Exercises chin tuck with head lift Supine Exercise Name HEP Reps/Minutes 7 sec X10 piriformis stretch Supine Exercise Name HEP Reps/Minutes 60 sec X 2 Comments verbal and tactile cues Sidelying Exercises side plank Sidelying Exercise Name on knees HEP Side bilateral Reps/Minutes 7 sec X 5 Comments verbal cues Sitting Exercises sit to stand Reps/Minutes X 10 Comments Verbal cues for hip hinge and knees just pat 90 deg seated breathing from diaphragm Sitting Exercise Name 2 pillows on lap ( initiated in sidelying) Comments HEP Other Exercises bird dog Side bilateral Reps/Minutes X 5 Comments VC for 7 sec hold tracy pose Side bilateral Reps/Minutes 30 sec to Left 30 seconds to right Manual Therapy Treatment Consent Patient gave verbal consent for manual Yes treatment Soft Tissue Mobilization bilateral glute/piriformis Mobilization Type Cross-Friction,Rolling Intensity/Depth Moderate Body Position Sidelying Manual Techniques R AI L PI Reps/Duration R AI and L PI and pubic shotgun 6X 6 second each PT-OP-T Assessment and Plan Start: 02/17/25 17:48 Freq: Status: Active Protocol: Document 02/25/25 13:01 [facility] (Rec: 02/25/25 16:12 AB Laptop) Physical Therapy Assessment Goals activities Prison Goal (LTG) Pt will be able to hike, bike, golf and do paddle sports w/o inc L SI or hip pain LTG Duration 04/29 strength Short Term Goal (STG) Pt will be indep w/HEP STG Duration 03/30 Help Desk Manager Goal (LTG) Pt will score at least 4+/5 on BLE MMT and at least 3/5 on all planes LPM to show improved stability to allow return to full active lifestyle LTG Duration 04/29 AR Impairment 52% Short Term Goal (STG) Pt will improve AR score to no greater than 36 % to show improved functional ability. STG Duration 03/28 Help Desk Manager Goal (LTG) Pt will improve AR score to no greater than 6% to show improved functional ability. LTG Duration 04/27 Assessment Summary Assessment Patient reports feeling looser post manual therapy and MET Physical Therapy Plan Frequency and Duration Frequency of Treatment 2x/Week Duration of treatment (weeks) 10 Plan of Care Start Date 02/18/25 Plan of Care End Date 04/29/25 Therapeutic Interventions Therapeutic Interventions Balance Training,Gait Training ,Home Exercise Program,Joint Mobilizations,Manual Therapy, Neuromuscular Re-education, Patient/Caregiver Education, Self-Care/Home Management,Soft Tissue Mobilization,Taping, Therapeutic Activities, Therapeutic Exercises Modalities Cold Pack/Ice Massage,Electric Stimulation,Hot Packs, Infrared Therapy,Traction- Mechanical,Ultrasound Next Visit Focus/Plan Next Note Type Treatment Note Next Visit Plan work on core strength advancement, MET for pelvis
--- NOTE | 2025-03-02 10:10 | PT.OTN ---
Current Diagnoses Hyperlipidemia, unspecified (03/02/25) Cyst of pancreas (03/02/25) Other specified disorders of bone density and structure, unspecified site (03/02/25) Strain of muscle, fascia and tendon of lower back, initial encounter (03/02/25) Physical Therapy Treatment Note PT-OP-A Visit Information Start: 02/17/25 17:48 Freq: Status: Active Protocol: Document 03/02/25 08:00 AB (Rec: 03/02/25 10:09 AB Laptop) Out-Patient Physical Therapy Visit Information Visit Information Visit Type Treatment Note Visit Note Visit [email or web address] Code: [email or web address] Visit Start Time 08:16 Visit Stop Time 09:02 Visit Number 4 PN by 03/21/2025 Number of WRINGER OPERATOR Visits 2 PT-OP-B Current Condition Start: 02/17/25 17:48 Freq: Status: Active Protocol: Document 02/18/25 15:19 [facility] (Rec: 02/18/25 18:47 [facility] [id number]) Current Condition History of Current Condition Onset Date 1 week ago Current Complaints L hip pain History of Current Condition Pt skiied over 650 miles xc this season. IT gets mushy at the end of the season. L leg is shorter. Was trying to use R side more because typically doesn't use it. She went golfing then drove from [facility] and had inc pain when woke up here. She had a massage and it was better initially but the day after was worse. pain was in L hip and had migrated to ant hip. Went to the ER and Gave pain meds/anti nausea meds and urine testing, imaging and sent home. saw primary and he wasn't worried about the cyst on pancreas. Stopped hydrocodone d/t making her feel like a zombie and taking 500mg Naproxen and feels better. Has been to the chiro 2x. Hx SI pain but typically on R side but not as severe. Broke L leg 2x (fibula one time '99 and tibia other time '01). Has been sleeping most of the week and heating because it seems to help. Ice doesn't seem to help. Wears a 1/4 in lift for measured discrepancy. Does stretch and exercise daily. Treatment Goals Patient/Caregiver Goals be able to SUP, mtn bike, hike , golf PT-OP-C Subjective Start: 02/17/25 17:48 Freq: Status: Active Protocol: Document 03/02/25 08:00 AB (Rec: 03/02/25 10:09 AB Laptop) OP-PT Subjective Patient Comments Patient Comments Patient reports she is better, able to do more, went biking twice this weekend, doesn't have the pain in the back, but does have anterior hip pain L side, reports having a little right glute tightness. PT-OP-D Balance Start: 02/17/25 17:48 Freq: Status: Active Protocol: Document 02/18/25 15:19 [facility] (Rec: 02/18/25 18:47 [facility] [id number]) Balance Tests Single Limb Standing Single Limb- Right >30 sec Single Limb- Left 11 sec PT-OP-G Mobility & Gait Start: 02/17/25 17:48 Freq: Status: Active Protocol: Document 02/18/25 15:19 [facility] (Rec: 02/18/25 18:47 [facility] [id number]) OP Gait Assessment Comments Gait Comments Dec LLE stance time and push off PT-OP-J Posture/Palpation/Skin Start: 02/17/25 17:48 Freq: Status: Active Protocol: Document 02/18/25 15:19 [facility] (Rec: 02/18/25 18:47 [facility] [id number]) Posture Evaluation [facility] Postural Classification System Lumbar Protective Mechanism Left AP 0 Lumbar Protective Mechanism Right AP 1 Lumbar Protective Mechanism Left PA 1 Lumbar Protective Mechanism Right PA 1 Comments Posture Comments L genu recurvatum, R pelvic shear, rot R SB L PT-OP-K Range of Motion Start: 02/17/25 17:48 Freq: Status: Active Protocol: Document 02/18/25 15:19 [facility] (Rec: 02/18/25 18:47 [facility] [id number]) Lumbar Spine Range of Motion Lumbar Spine Active Percentage Flexion 80 Extension 50 Rotation Left 25 Rotation Right 45 Lateral Flexion Left 50 Lateral Flexion Right 50 Comments pain L B SB, ext PT-OP-L Special Tests Start: 02/17/25 17:48 Freq: Status: Active Protocol: Document 02/18/25 15:19 [facility] (Rec: 02/18/25 18:47 [facility] [id number]) Special Tests Lumbar Spine Special Tests march Test Results positive L Slump Test Results neg B PT-OP-M Strength Start: 02/17/25 17:48 Freq: Status: Active Protocol: Document 02/18/25 15:19 [facility] (Rec: 02/18/25 18:47 [facility] [id number]) Hip Strength Hip Manual Muscle Testing Right Flexion (L2) 4- Good- Extension (S1) 3+ Fair+ Abduction 4 Good External Rotation 5 Normal Internal Rotation 5 Normal Left Flexion (L2) 3 Fair Extension (S1) 3- Fair- Abduction 3+ Fair+ External Rotation 4- Good- Internal Rotation 4- Good- Comments pain hip flex Knee Strength Knee Manual Muscle Testing Right Flexion (S2) 5 Normal Extension (L3) 5 Normal Left Flexion (S2) 3+ Fair+ Extension (L3) 4 Good Comments pain flex Ankle/Foot Strength Ankle and Foot Manual Muscle Testing B Dorsiflexion (L4) 5 Normal Plantarflexion (S1) 5 Normal Comments seated B PT-OP-Q Treatments Start: 02/17/25 17:48 Freq: Status: Active Protocol: Document 03/02/25 08:00 AB (Rec: 03/02/25 10:09 AB Laptop) Therapeutic Exercises Supine Exercises iilliopsoas Supine Exercise Name HEP Side bilateral Reps/Minutes 60 sec X1 each LE, then AROM Knee flexion X 10 Comments verbal cues piriformis stretch Supine Exercise Name HEP Reps/Minutes 60 sec X 1 Comments post STM pre MET Other Exercises Pallof press Other Exercise Name 1. Standing, 2. seated on ball Side bilateral Resistance level 2 band teal Reps/Minutes X 10 each exercise each direction Comments Verbal cues Therapeutic Activity Therapeutic Activity golf swing Name X 5 and X 10 Comments monitored for pain, Patient ed to note if having increased pain remainder of this day. Manual Therapy Treatment Consent Patient gave verbal consent for manual Yes treatment Soft Tissue Mobilization bilateral glute/piriformis Mobilization Type Cross-Friction,Rolling Intensity/Depth Moderate Body Position Sidelying ant Body Location illiopsoas Mobilization Type Cross-Friction,Rolling Intensity/Depth Moderate Body Position Hooklying Manual Techniques R AI L PI Reps/Duration R AI and L PI and pubic shotgun 6X 6 second each PT-OP-T Assessment and Plan Start: 02/17/25 17:48 Freq: Status: Active Protocol: Document 03/02/25 08:00 AB (Rec: 03/02/25 10:09 AB Laptop) Physical Therapy Assessment Goals activities Shoe Lacer Goal (LTG) Pt will be able to hike, bike, golf and do paddle sports w/o inc L SI or hip pain LTG Duration 04/29 strength Short Term Goal (STG) Pt will be indep w/HEP STG Duration 03/30 Shoe Lacer Goal (LTG) Pt will score at least 4+/5 on BLE MMT and at least 3/5 on all planes LPM to show improved stability to allow return to full active lifestyle LTG Duration 04/29 AR Impairment 52% Short Term Goal (STG) Pt will improve AR score to no greater than 36 % to show improved functional ability. STG Duration 03/28 Custodial Goal (LTG) Pt will improve AR score to no greater than 6% to show improved functional ability. LTG Duration 04/27 Assessment Summary Assessment Patient reports having no increased pain end of session, into session with reports of good tucker to biking over weekend. Noted excessive stiffness iliopsoas R> L LE Physical Therapy Plan Frequency and Duration Frequency of Treatment 2x/Week Duration of treatment (weeks) 10 Plan of Care Start Date 02/18/25 Plan of Care End Date 04/29/25 Therapeutic Interventions Therapeutic Interventions Balance Training,Gait Training ,Home Exercise Program,Joint Mobilizations,Manual Therapy, Neuromuscular Re-education, Patient/Caregiver Education, Self-Care/Home Management,Soft Tissue Mobilization,Taping, Therapeutic Activities, Therapeutic Exercises Modalities Cold Pack/Ice Massage,Electric Stimulation,Hot Packs, Infrared Therapy,Traction- Mechanical,Ultrasound Next Visit Focus/Plan Next Note Type Treatment Note Next Visit Plan work on core strength advancement, MET for pelvis
--- NOTE | 2025-03-05 17:25 | PT.OTN ---
Current Diagnoses Hyperlipidemia, unspecified (03/05/25) Cyst of pancreas (03/05/25) Other specified disorders of bone density and structure, unspecified site (03/05/25) Strain of muscle, fascia and tendon of lower back, initial encounter (03/05/25) Physical Therapy Treatment Note PT-OP-A Visit Information Start: 02/17/25 17:48 Freq: Status: Active Protocol: Document 03/05/25 07:35 [employer] TECHNICIAN (Rec: 03/05/25 09:05 MICROBIOLOGICAL LAB TECHNICIAN Laptop) Out-Patient Physical Therapy Visit Information Visit Information Visit Type Treatment Note Visit Start Time 08:16 Visit Stop Time 08:58 Visit Number 5 Number of MACHINE CARTON MARKER Visits 0 PT-OP-B Current Condition Start: 02/17/25 17:48 Freq: Status: Active Protocol: Document 02/18/25 15:19 [facility] (Rec: 02/18/25 18:47 [facility] [id number]) Current Condition History of Current Condition Onset Date 1 week ago Current Complaints L hip pain History of Current Condition Pt skiied over 650 miles xc this season. IT gets mushy at the end of the season. L leg is shorter. Was trying to use R side more because typically doesn't use it. She went golfing then drove from [facility] and had inc pain when woke up here. She had a massage and it was better initially but the day after was worse. pain was in L hip and had migrated to ant hip. Went to the ER and Gave pain meds/anti nausea meds and urine testing, imaging and sent home. saw primary and he wasn't worried about the cyst on pancreas. Stopped hydrocodone d/t making her feel like a zombie and taking 500mg Naproxen and feels better. Has been to the chiro 2x. Hx SI pain but typically on R side but not as severe. Broke L leg 2x (fibula one time '99 and tibia other time '01). Has been sleeping most of the week and heating because it seems to help. Ice doesn't seem to help. Wears a 1/4 in lift for measured discrepancy. Does stretch and exercise daily. Treatment Goals Patient/Caregiver Goals be able to SUP, mtn bike, hike , golf PT-OP-C Subjective Start: 02/17/25 17:48 Freq: Status: Active Protocol: Document 03/05/25 07:35 [employer]BI[employer]ICAL LAB TECHNICIAN (Rec: 03/05/25 09:05 MICROBIOLOGICAL LAB TECHNICIAN Laptop) OP-PT Subjective Patient Comments Patient Comments Pt reports no pain at this time. She also reports less tightness in L glute and more tightness in R glute. She states she has been feeling off balanced during mobility. PT-OP-D Balance Start: 02/17/25 17:48 Freq: Status: Active Protocol: Document 02/18/25 15:19 [facility] (Rec: 02/18/25 18:47 [facility] [id number]) Balance Tests Single Limb Standing Single Limb- Right >30 sec Single Limb- Left 11 sec PT-OP-G Mobility & Gait Start: 02/17/25 17:48 Freq: Status: Active Protocol: Document 02/18/25 15:19 [facility] (Rec: 02/18/25 18:47 [facility] [id number]) OP Gait Assessment Comments Gait Comments Dec LLE stance time and push off PT-OP-J Posture/Palpation/Skin Start: 02/17/25 17:48 Freq: Status: Active Protocol: Document 02/18/25 15:19 [facility] (Rec: 02/18/25 18:47 [facility] [id number]) Posture Evaluation [facility] Postural Classification System Lumbar Protective Mechanism Left AP 0 Lumbar Protective Mechanism Right AP 1 Lumbar Protective Mechanism Left PA 1 Lumbar Protective Mechanism Right PA 1 Comments Posture Comments L genu recurvatum, R pelvic shear, rot R SB L PT-OP-K Range of Motion Start: 02/17/25 17:48 Freq: Status: Active Protocol: Document 02/18/25 15:19 [facility] (Rec: 02/18/25 18:47 [facility] [id number]) Lumbar Spine Range of Motion Lumbar Spine Active Percentage Flexion 80 Extension 50 Rotation Left 25 Rotation Right 45 Lateral Flexion Left 50 Lateral Flexion Right 50 Comments pain L B SB, ext PT-OP-L Special Tests Start: 02/17/25 17:48 Freq: Status: Active Protocol: Document 02/18/25 15:19 [facility] (Rec: 02/18/25 18:47 [facility] [id number]) Special Tests Lumbar Spine Special Tests march Test Results positive L Slump Test Results neg B PT-OP-M Strength Start: 02/17/25 17:48 Freq: Status: Active Protocol: Document 02/18/25 15:19 [facility] (Rec: 02/18/25 18:47 [facility] [id number]) Hip Strength Hip Manual Muscle Testing Right Flexion (L2) 4- Good- Extension (S1) 3+ Fair+ Abduction 4 Good External Rotation 5 Normal Internal Rotation 5 Normal Left Flexion (L2) 3 Fair Extension (S1) 3- Fair- Abduction 3+ Fair+ External Rotation 4- Good- Internal Rotation 4- Good- Comments pain hip flex Knee Strength Knee Manual Muscle Testing Right Flexion (S2) 5 Normal Extension (L3) 5 Normal Left Flexion (S2) 3+ Fair+ Extension (L3) 4 Good Comments pain flex Ankle/Foot Strength Ankle and Foot Manual Muscle Testing B Dorsiflexion (L4) 5 Normal Plantarflexion (S1) 5 Normal Comments seated B PT-OP-Q Treatments Start: 02/17/25 17:48 Freq: Status: Active Protocol: Document 03/05/25 07:35 [facility] TECHNICIAN (Rec: 03/05/25 09:05 MICROBIOLOGICAL LAB TECHNICIAN Laptop) Therapeutic Exercises Supine Exercises piriformis stretch Side right Reps/Minutes 60s x2 Comments post STM, mod overpressure given Manual Therapy Treatment Consent Patient gave verbal consent for manual Yes treatment Soft Tissue Mobilization bilateral glute/piriformis Body Location R Mobilization Type Cross-Friction,Rolling Intensity/Depth Moderate Body Position Sidelying ant Body Location illiopsoas Mobilization Type Cross-Friction,Rolling Intensity/Depth Moderate Body Position Hooklying Neuro Re-Education Treatment Balance Activities SLS Details modified SLS for glute med target Surface even surface Equipment large exercise ball, mirror Reps/Duration 1 min x2 each side Comments SLS with light stabilization of opposite hip against ball against wall for target of stance leg glute med vs balance Squats on foam Surface foam Reps/Duration x15 Comments VC for weight shift through heels and prevent B hip add at times Toe taps Surface foam Equipment stairs Reps/Duration 3x5 each LE Comments SLS on foam while opp LE taps up and down 3 6 stairs, without UE support. Moderately unsteady with 1 LOB PT-OP-T Assessment and Plan Start: 02/17/25 17:48 Freq: Status: Active Protocol: Document 03/05/25 07:35 MICROBIOLOGICAL LAB TECHNICIAN (Rec: 03/05/25 09:05 MICROBIOLOGICAL LAB TECHNICIAN Laptop) Physical Therapy Assessment Goals activities Digester Operator Goal (LTG) Pt will be able to hike, bike, golf and do paddle sports w/o inc L SI or hip pain LTG Duration 04/29 strength Short Term Goal (STG) Pt will be indep w/HEP STG Duration 03/30 Senior Living Goal (LTG) Pt will score at least 4+/5 on BLE MMT and at least 3/5 on all planes LPM to show improved stability to allow return to full active lifestyle LTG Duration 04/29 AR Impairment 52% Short Term Goal (STG) Pt will improve AR score to no greater than 36 % to show improved functional ability. STG Duration 03/28 Senior Living Goal (LTG) Pt will improve AR score to no greater than 6% to show improved functional ability. LTG Duration 04/27 Assessment Summary Assessment Pt reports feeling looser in R glute walking out vs walking into PT session. Pt really enjoyed working on dynamic balance training. Physical Therapy Plan Frequency and Duration Frequency of Treatment 2x/Week Duration of treatment (weeks) 10 Plan of Care Start Date 02/18/25 Plan of Care End Date 04/29/25 Therapeutic Interventions Therapeutic Interventions Balance Training,Gait Training ,Home Exercise Program,Joint Mobilizations,Manual Therapy, Neuromuscular Re-education, Patient/Caregiver Education, Self-Care/Home Management,Soft Tissue Mobilization,Taping, Therapeutic Activities, Therapeutic Exercises Modalities Cold Pack/Ice Massage,Electric Stimulation,Hot Packs, Infrared Therapy,Traction- Mechanical,Ultrasound Next Visit Focus/Plan Next Note Type Treatment Note Next Visit Plan work on core strength advancement, MET for pelvis, hip girdle strengthening with dynamic standing balance
--- NOTE | 2025-03-09 18:25 | PT.OTN ---
Current Diagnoses Hyperlipidemia, unspecified (03/09/25) Cyst of pancreas (03/09/25) Other specified disorders of bone density and structure, unspecified site (03/09/25) Strain of muscle, fascia and tendon of lower back, initial encounter (03/09/25) Physical Therapy Treatment Note PT-OP-A Visit Information Start: 02/17/25 17:48 Freq: Status: Active Protocol: Document 03/09/25 13:46 AB (Rec: 03/09/25 15:13 AB Laptop) Out-Patient Physical Therapy Visit Information Visit Information Visit Type Treatment Note Visit Note [id number] Visit Start Time 14:00 Visit Stop Time 14:54 Visit Number 6 Number of CRIMINAL JUSTICE FACULTY Visits 1 PT-OP-B Current Condition Start: 02/17/25 17:48 Freq: Status: Active Protocol: Document 02/18/25 15:19 [facility] (Rec: 02/18/25 18:47 [facility] [id number]) Current Condition History of Current Condition Onset Date 1 week ago Current Complaints L hip pain History of Current Condition Pt skiied over 650 miles xc this season. IT gets mushy at the end of the season. L leg is shorter. Was trying to use R side more because typically doesn't use it. She went golfing then drove from [facility] and had inc pain when woke up here. She had a massage and it was better initially but the day after was worse. pain was in L hip and had migrated to ant hip. Went to the ER and Gave pain meds/anti nausea meds and urine testing, imaging and sent home. saw primary and he wasn't worried about the cyst on pancreas. Stopped hydrocodone d/t making her feel like a zombie and taking 500mg Naproxen and feels better. Has been to the chiro 2x. Hx SI pain but typically on R side but not as severe. Broke L leg 2x (fibula one time '99 and tibia other time '01). Has been sleeping most of the week and heating because it seems to help. Ice doesn't seem to help. Wears a 1/4 in lift for measured discrepancy. Does stretch and exercise daily. Treatment Goals Patient/Caregiver Goals be able to SUP, mtn bike, hike , golf PT-OP-C Subjective Start: 02/17/25 17:48 Freq: Status: Active Protocol: Document 03/09/25 13:46 AB (Rec: 03/09/25 15:13 AB Laptop) OP-PT Subjective Patient Comments Patient Comments Patient reports she is better in general, less pain with house work, but is still not able to do yardwork, or lift surrogate grandchild. Patient Questionnaires Oswestry Low Back Index Oswestry Score 30% PT-OP-D Balance Start: 02/17/25 17:48 Freq: Status: Active Protocol: Document 02/18/25 15:19 [facility] (Rec: 02/18/25 18:47 [facility] [id number]) Balance Tests Single Limb Standing Single Limb- Right >30 sec Single Limb- Left 11 sec PT-OP-G Mobility & Gait Start: 02/17/25 17:48 Freq: Status: Active Protocol: Document 02/18/25 15:19 [facility] (Rec: 02/18/25 18:47 [facility] [id number]) OP Gait Assessment Comments Gait Comments Dec LLE stance time and push off PT-OP-J Posture/Palpation/Skin Start: 02/17/25 17:48 Freq: Status: Active Protocol: Document 02/18/25 15:19 [facility] (Rec: 02/18/25 18:47 [facility] [id number]) Posture Evaluation [facility] Postural Classification System Lumbar Protective Mechanism Left AP 0 Lumbar Protective Mechanism Right AP 1 Lumbar Protective Mechanism Left PA 1 Lumbar Protective Mechanism Right PA 1 Comments Posture Comments L genu recurvatum, R pelvic shear, rot R SB L PT-OP-K Range of Motion Start: 02/17/25 17:48 Freq: Status: Active Protocol: Document 02/18/25 15:19 [facility] (Rec: 02/18/25 18:47 [facility] [id number]) Lumbar Spine Range of Motion Lumbar Spine Active Percentage Flexion 80 Extension 50 Rotation Left 25 Rotation Right 45 Lateral Flexion Left 50 Lateral Flexion Right 50 Comments pain L B SB, ext PT-OP-L Special Tests Start: 02/17/25 17:48 Freq: Status: Active Protocol: Document 02/18/25 15:19 [facility] (Rec: 02/18/25 18:47 [facility] [id number]) Special Tests Lumbar Spine Special Tests march Test Results positive L Slump Test Results neg B PT-OP-M Strength Start: 02/17/25 17:48 Freq: Status: Active Protocol: Document 03/09/25 13:46 AB (Rec: 03/09/25 18:12 AB Laptop) Hip Strength Hip Manual Muscle Testing Right Flexion (L2) 4 Good Extension (S1) 3- Fair- Abduction 3+ Fair+ Adduction 3+ Fair+ External Rotation 5 Normal Internal Rotation 5 Normal Left Flexion (L2) 4 Good Extension (S1) 3- Fair- Abduction 3+ Fair+ Adduction 3+ Fair+ External Rotation 5 Normal Internal Rotation 4+ Good+ Knee Strength Knee Manual Muscle Testing Right Flexion (S2) 4+ Good+ Extension (L3) 5 Normal Left Flexion (S2) 3+ Fair+ Extension (L3) 5 Normal PT-OP-Q Treatments Start: 02/17/25 17:48 Freq: Status: Active Protocol: Document 03/09/25 13:46 AB (Rec: 03/09/25 15:13 AB Laptop) Therapeutic Exercises Sitting Exercises sit to stand Reps/Minutes X 10 Comments Verbal cues for hip hinge and knees just pat 90 deg Standing Exercises side stepping with band Side bilateral Resistance level 3 band Reps/Minutes 10 feet L and right Comments Verbal cues to avoid toeing out hip extension with band Side bilateral Resistance level 3 band Reps/Minutes 10ft X4 L and R Comments Verbal cues Other Exercises single leg lift Side bilateral Reps/Minutes X 12 Comments Verbal cues Neuro Re-Education Treatment Balance Activities Gorman Details 56/56 SLS Comments L LE 3 sec R LE 4 sec without UE use PT-OP-T Assessment and Plan Start: 02/17/25 17:48 Freq: Status: Active Protocol: Document 03/09/25 13:46 AB (Rec: 03/09/25 15:13 AB Laptop) Physical Therapy Assessment Goals activities Position Classification Manager Goal (LTG) Pt will be able to hike, bike, golf and do paddle sports w/o inc L SI or hip pain LTG Duration 04/29 strength Short Term Goal (STG) Pt will be indep w/HEP STG Duration 03/30 Position Classification Manager Goal (LTG) Pt will score at least 4+/5 on BLE MMT and at least 3/5 on all planes LPM to show improved stability to allow return to full active lifestyle LTG Duration 04/29 AR Impairment 52% Short Term Goal (STG) Pt will improve AR score to no greater than 36 % to show improved functional ability. STG Duration 03/28 MET AR 30% 03/09/2025 Long-Term Goal (LTG) Pt will improve AR score to no greater than 6% to show improved functional ability. LTG Duration 04/27 Assessment Summary Assessment MMT, and Gorman performed form [employer] form this session, as well as progression of exercises this session. Patient has made good progress , as seen by reports if increased tolerance to household tasks, but has not yet been able to return to yard work/outdoor tasks/ heavier tasks. Hip strength continues to be very weak, which is a concern for increased forces on low back. Patient would benefit from continued PT, progression of strengthening exercises and is very motivated to participate in progression of plan. Physical Therapy Plan Frequency and Duration Frequency of Treatment 2x/Week Duration of treatment (weeks) 10 Plan of Care Start Date 02/18/25 Plan of Care End Date 04/29/25 Next Visit Focus/Plan Next Note Type Treatment Note Next Visit Plan work on core strength advancement, MET for pelvis, hip girdle strengthening with dynamic standing balance
--- NOTE | 2025-03-11 12:25 | PT.OTN ---
Current Diagnoses Hyperlipidemia, unspecified (03/11/25) Cyst of pancreas (03/11/25) Other specified disorders of bone density and structure, unspecified site (03/11/25) Strain of muscle, fascia and tendon of lower back, initial encounter (03/11/25) Physical Therapy Treatment Note PT-OP-A Visit Information Start: 02/17/25 17:48 Freq: Status: Active Protocol: Document 03/11/25 07:32 [facility] (Rec: 03/11/25 12:25 [facility] [id number]) Out-Patient Physical Therapy Visit Information Visit Information Visit Type Progress Note Visit Note [id number] Visit Start Time 07:33 Visit Stop Time 08:15 Visit Number 7 Number of UNIVERSITY SERVICES PROGRAM ASSOCIATE Visits 0 PT-OP-B Current Condition Start: 02/17/25 17:48 Freq: Status: Active Protocol: Document 02/18/25 15:19 [facility] (Rec: 02/18/25 18:47 [facility] [id number]) Current Condition History of Current Condition Onset Date 1 week ago Current Complaints L hip pain History of Current Condition Pt skiied over 650 miles xc this season. IT gets mushy at the end of the season. L leg is shorter. Was trying to use R side more because typically doesn't use it. She went golfing then drove from [facility] and had inc pain when woke up here. She had a massage and it was better initially but the day after was worse. pain was in L hip and had migrated to ant hip. Went to the ER and Gave pain meds/anti nausea meds and urine testing, imaging and sent home. saw primary and he wasn't worried about the cyst on pancreas. Stopped hydrocodone d/t making her feel like a zombie and taking 500mg Naproxen and feels better. Has been to the chiro 2x. Hx SI pain but typically on R side but not as severe. Broke L leg 2x (fibula one time '99 and tibia other time '01). Has been sleeping most of the week and heating because it seems to help. Ice doesn't seem to help. Wears a 1/4 in lift for measured discrepancy. Does stretch and exercise daily. Treatment Goals Patient/Caregiver Goals be able to SUP, mtn bike, hike , golf PT-OP-C Subjective Start: 02/17/25 17:48 Freq: Status: Active Protocol: Document 03/11/25 07:32 [facility] (Rec: 03/11/25 12:25 [facility] [id number]) OP-PT Subjective Patient Comments Patient Comments pt reports she is overall doing better. Still wakes with stiffness but stiffness is more on R back now in AM. Hasn 't tried any difficult mountain biking or lifting yet PT-OP-D Balance Start: 02/17/25 17:48 Freq: Status: Active Protocol: Document 02/18/25 15:19 [facility] (Rec: 02/18/25 18:47 [facility] [id number]) Balance Tests Single Limb Standing Single Limb- Right >30 sec Single Limb- Left 11 sec PT-OP-G Mobility & Gait Start: 02/17/25 17:48 Freq: Status: Active Protocol: Document 02/18/25 15:19 [facility] (Rec: 02/18/25 18:47 [facility] [id number]) OP Gait Assessment Comments Gait Comments Dec LLE stance time and push off PT-OP-J Posture/Palpation/Skin Start: 02/17/25 17:48 Freq: Status: Active Protocol: Document 02/18/25 15:19 [facility] (Rec: 02/18/25 18:47 [facility] [id number]) Posture Evaluation Hilda Postural Classification System Lumbar Protective Mechanism Left AP 0 Lumbar Protective Mechanism Right AP 1 Lumbar Protective Mechanism Left PA 1 Lumbar Protective Mechanism Right PA 1 Comments Posture Comments L genu recurvatum, R pelvic shear, rot R SB L PT-OP-K Range of Motion Start: 02/17/25 17:48 Freq: Status: Active Protocol: Document 02/18/25 15:19 [facility] (Rec: 02/18/25 18:47 [facility] [id number]) Lumbar Spine Range of Motion Lumbar Spine Active Percentage Flexion 80 Extension 50 Rotation Left 25 Rotation Right 45 Lateral Flexion Left 50 Lateral Flexion Right 50 Comments pain L B SB, ext PT-OP-L Special Tests Start: 02/17/25 17:48 Freq: Status: Active Protocol: Document 02/18/25 15:19 [facility] (Rec: 02/18/25 18:47 [facility] [id number]) Special Tests Lumbar Spine Special Tests march Test Results positive L Slump Test Results neg B PT-OP-M Strength Start: 02/17/25 17:48 Freq: Status: Active Protocol: Document 03/09/25 13:46 [facility] (Rec: 03/09/25 18:12 AB Laptop) Hip Strength Hip Manual Muscle Testing Right Flexion (L2) 4 Good Extension (S1) 3- Fair- Abduction 3+ Fair+ Adduction 3+ Fair+ External Rotation 5 Normal Internal Rotation 5 Normal Left Flexion (L2) 4 Good Extension (S1) 3- Fair- Abduction 3+ Fair+ Adduction 3+ Fair+ External Rotation 5 Normal Internal Rotation 4+ Good+ Knee Strength Knee Manual Muscle Testing Right Flexion (S2) 4+ Good+ Extension (L3) 5 Normal Left Flexion (S2) 3+ Fair+ Extension (L3) 5 Normal PT-OP-Q Treatments Start: 02/17/25 17:48 Freq: Status: Active Protocol: Document 03/11/25 07:32 [facility] (Rec: 03/11/25 12:25 [facility] [id number]) Manual Therapy Treatment Consent Patient gave verbal consent for manual Yes treatment Soft Tissue Mobilization ant Comments 1. Lat rectus abdominus border B 2. L psoas w/90/90 position 3. ligament of clyet OSFM w/ LTR 4. Descending colon w/LTR Joint Mobilizations lumbar Comments transverse L L3-5 seated and s /l w/SB PT-OP-T Assessment and Plan Start: 02/17/25 17:48 Freq: Status: Active Protocol: Document 03/11/25 07:32 [facility] (Rec: 03/11/25 12:25 [facility] [id number]) Physical Therapy Assessment Goals activities Engine Cowling Installer Goal (LTG) Pt will be able to hike, bike, golf and do paddle sports w/o inc L SI or hip pain 03/11-started low level activities LTG Duration 04/29 strength Short Term Goal (STG) Pt will be indep w/HEP 03/11-advancing as able but compliant on current HEP STG Duration 03/30 Halfway Goal (LTG) Pt will score at least 4+/5 on BLE MMT and at least 3/5 on all planes LPM to show improved stability to allow return to full active lifestyle 03/11-improving LTG Duration 04/29 AR Impairment 52% Short Term Goal (STG) Pt will improve AR score to no greater than 36 % to show improved functional ability. STG Duration 03/28 MET AR 30% 03/09/2025 Engine Cowling Installer Goal (LTG) Pt will improve AR score to no greater than 6% to show improved functional ability. LTG Duration 04/27 Assessment Summary Assessment pt making good progress w/PT with improved tolerance to activity but she is not back to her typical high level of function yet. She had improved flex and SB B w/improved ROM and dec pain after manual today. Physical Therapy Plan Frequency and Duration Frequency of Treatment 2x/Week Duration of treatment (weeks) 10 Plan of Care Start Date 02/18/25 Plan of Care End Date 04/29/25 Next Visit Focus/Plan Next Note Type Treatment Note Next Visit Plan work on spinal, hip and visceral mobility for improved functional mobility, train hip hinges
--- NOTE | 2025-03-29 10:19 | PT.OTN ---
Current Diagnoses Hyperlipidemia, unspecified (03/29/25) Cyst of pancreas (03/29/25) Other specified disorders of bone density and structure, unspecified site (03/29/25) Strain of muscle, fascia and tendon of lower back, initial encounter (03/29/25) Physical Therapy Treatment Note PT-OP-A Visit Information Start: 02/17/25 17:48 Freq: Status: Active Protocol: Document 03/29/25 07:34 [facility] (Rec: 03/29/25 10:18 [facility] [id number]) Out-Patient Physical Therapy Visit Information Visit Information Visit Type Progress Note Visit Note [id number] Visit Start Time 07:32 Visit Stop Time 08:15 Visit Number 8 Number of PLASTIC INSTALLER Visits 0 PT-OP-B Current Condition Start: 02/17/25 17:48 Freq: Status: Active Protocol: Document 02/18/25 15:19 [facility] (Rec: 02/18/25 18:47 [facility] [id number]) Current Condition History of Current Condition Onset Date 1 week ago Current Complaints L hip pain History of Current Pt skiied over 650 miles xc this season. IT gets mushy Condition at the end of the season. L leg is shorter. Was trying to use R side more because typically doesn't use it. She went golfing then drove from [facility] and had inc pain when woke up here. She had a massage and it was better initially but the day after was worse. pain was in L hip and had migrated to ant hip. Went to the ER and Gave pain meds/anti nausea meds and urine testing, imaging and sent home. saw primary and he wasn 't worried about the cyst on pancreas. Stopped hydrocodone d/t making her feel like a zombie and taking 500mg Naproxen and feels better. Has been to the chiro 2x. Hx SI pain but typically on R side but not as severe. Broke L leg 2x (fibula one time '99 and tibia other time '01). Has been sleeping most of the week and heating because it seems to help. Ice doesn't seem to help. Wears a 1/4 in lift for measured discrepancy. Does stretch and exercise daily. Treatment Goals Patient/Caregiver be able to SUP, mtn bike, hike, golf Goals PT-OP-C Subjective Start: 02/17/25 17:48 Freq: Status: Active Protocol: Document 03/29/25 07:34 [facility] (Rec: 03/29/25 10:18 [facility] [id number]) OP-PT Subjective Patient Comments Patient Comments back was sore after driving range. gets up in the AM and is stiff. Notes she has SUP and mtn bike. feels like takes too long for exercises. PT-OP-D Balance Start: 02/17/25 17:48 Freq: Status: Active Protocol: Document 02/18/25 15:19 [facility] (Rec: 02/18/25 18:47 [facility] [id number]) Balance Tests Single Limb Standing Single Limb- Right >30 sec Single Limb- Left 11 sec PT-OP-G Mobility & Gait Start: 02/17/25 17:48 Freq: Status: Active Protocol: Document 02/18/25 15:19 [facility] (Rec: 02/18/25 18:47 [facility] [id number]) OP Gait Assessment Comments Gait Comments Dec LLE stance time and push off PT-OP-J Posture/Palpation/Skin Start: 02/17/25 17:48 Freq: Status: Active Protocol: Document 03/29/25 07:34 [facility] (Rec: 03/29/25 10:18 [facility] [id number]) Posture Evaluation Hilda Postural Classification System Lumbar Protective 1 Mechanism Left AP Lumbar Protective 1 Mechanism Right AP Lumbar Protective 2 Mechanism Left PA Lumbar Protective 3 Mechanism Right PA PT-OP-K Range of Motion Start: 02/17/25 17:48 Freq: Status: Active Protocol: Document 02/18/25 15:19 [facility] (Rec: 02/18/25 18:47 [facility] [id number]) Lumbar Spine Range of Motion Lumbar Spine Active Percentage Flexion 80 Extension 50 Rotation Left 25 Rotation Right 45 Lateral Flexion Left 50 Lateral Flexion 50 Right Comments pain L B SB, ext PT-OP-L Special Tests Start: 02/17/25 17:48 Freq: Status: Active Protocol: Document 02/18/25 15:19 [facility] (Rec: 02/18/25 18:47 [facility] [id number]) Special Tests Lumbar Spine Special Tests march Test Results positive L Slump Test Results neg B PT-OP-M Strength Start: 02/17/25 17:48 Freq: Status: Active Protocol: Document 03/29/25 07:34 [facility] (Rec: 03/29/25 10:18 [facility] [id number]) Hip Strength Hip Manual Muscle Testing Right Flexion (L2) 5 Normal Extension (S1) 5 Normal Abduction 5 Normal Adduction 5 Normal External Rotation 5 Normal Internal Rotation 5 Normal Left Flexion (L2) 4 Good Extension (S1) 4 Good Abduction 4+ Good+ Adduction 5 Normal External Rotation 5 Normal Internal Rotation 5 Normal Knee Strength Knee Manual Muscle Testing Right Flexion (S2) 5 Normal Extension (L3) 5 Normal Left Flexion (S2) 5 Normal Extension (L3) 5 Normal PT-OP-Q Treatments Start: 02/17/25 17:48 Freq: Status: Active Protocol: Document 03/29/25 07:34 [facility] (Rec: 03/29/25 10:18 [facility] [id number]) Therapeutic Exercises Prone Exercises plank Prone Exercise Name forearm and feet w/alt hip ext Side bilateral Reps/Minutes 8 Comments cues neck and spinal position Sidelying Exercises side plank Sidelying Exercise feet and elbows Name Side bilateral Reps/Minutes 15 sec ea and set up Comments verbal cues to avoid rot open book Side bilateral Reps/Minutes 8 Comments cues inc thoracic ROM Other Exercises single leg lift Other Exercise Name 1. DL w/bar and 10lbs 2. SL w/o wt 3. SL w/ 10lb opp hand Side bilateral Reps/Minutes 10 ea Comments cues for neutral spine Pallof press Other Exercise Name 1. Standing paloff then rotation Side bilateral Resistance blue latex free band -2 bands Reps/Minutes X 10 each exercise each direction Comments Verbal cues posture tracy pose Other Exercise Name standing Side bilateral PT-OP-T Assessment and Plan Start: 02/17/25 17:48 Freq: Status: Active Protocol: Document 03/29/25 07:34 [facility] (Rec: 03/29/25 10:18 [facility] [id number]) Physical Therapy Assessment Goals activities Snf Goal (LTG) Pt will be able to hike, bike, golf and do paddle sports w/o inc L SI or hip pain 03/11-started low level activities 03/29-gradually inc intensity. back pain w/golf LTG Duration 04/29 strength Short Term Goal (STG Pt will be indep w/HEP ) 03/11-advancing as able but compliant on current HEP STG Duration achieved advancing as able Consumer Analyst Goal (LTG) Pt will score at least 4+/5 on BLE MMT and at least 3/5 on all planes LPM to show improved stability to allow return to full active lifestyle 03/11-improving 03/29-mostly achieved LTG Duration 04/29 AR Impairment 52% Short Term Goal (STG Pt will improve AR score to no greater than 36 % to ) show improved functional ability. STG Duration 03/28 MET AR 30% 03/09/2025 Consumer Analyst Goal (LTG) Pt will improve AR score to no greater than 6% to show improved functional ability. LTG Duration 04/27 Assessment Summary Assessment Pt making excellent progress with PT and has improved strength and mobility. she would benefit from cont PT for full return to activity w/o pain. She has some limited rotation, and some tightness noted in R hip still and occ back pain. Physical Therapy Plan Frequency and Duration Frequency of 2x/Week Treatment Duration of 10 treatment (weeks) Plan of Care Start 02/18/25 Date Plan of Care End 04/29/25 Date Therapeutic Interventions Therapeutic Balance Training,Gait Training,Home Exercise Program, Interventions Joint Mobilizations,Manual Therapy,Neuromuscular Re- education,Patient/Caregiver Education,Self-Care/Home Management,Soft Tissue Mobilization,Taping,Therapeutic Activities,Therapeutic Exercises Modalities Cold Pack/Ice Massage,Electric Stimulation,Hot Packs, Infrared Therapy,Traction- Mechanical,Ultrasound Next Visit Focus/Plan Next Note Type Treatment Note Next Visit Plan work on spinal, hip and visceral mobility for improved functional mobility
--- NOTE | 2025-04-01 09:39 | PT.OTN ---
Current Diagnoses Hyperlipidemia, unspecified (04/01/25) Cyst of pancreas (04/01/25) Other specified disorders of bone density and structure, unspecified site (04/01/25) Strain of muscle, fascia and tendon of lower back, initial encounter (04/01/25) Physical Therapy Treatment Note PT-OP-A Visit Information Start: 02/17/25 17:48 Freq: Status: Active Protocol: Document 04/01/25 09:31 [facility] (Rec: 04/01/25 09:39 [facility] [id number]) Out-Patient Physical Therapy Visit Information Visit Information Visit Type Treatment Note Visit Start Time 07:32 Visit Stop Time 08:15 Visit Number 9 Number of FLAME CUTTING MACHINE OPERATOR HELPER Visits 0 PT-OP-B Current Condition Start: 02/17/25 17:48 Freq: Status: Active Protocol: Document 02/18/25 15:19 [facility] (Rec: 02/18/25 18:47 [facility] [id number]) Current Condition History of Current Condition Onset Date 1 week ago Current Complaints L hip pain History of Current Pt skiied over 650 miles xc this season. IT gets mushy Condition at the end of the season. L leg is shorter. Was trying to use R side more because typically doesn't use it. She went golfing then drove from [facility] and had inc pain when woke up here. She had a massage and it was better initially but the day after was worse. pain was in L hip and had migrated to ant hip. Went to the ER and Gave pain meds/anti nausea meds and urine testing, imaging and sent home. saw primary and he wasn 't worried about the cyst on pancreas. Stopped hydrocodone d/t making her feel like a zombie and taking 500mg Naproxen and feels better. Has been to the chiro 2x. Hx SI pain but typically on R side but not as severe. Broke L leg 2x (fibula one time '99 and tibia other time '01). Has been sleeping most of the week and heating because it seems to help. Ice doesn't seem to help. Wears a 1/4 in lift for measured discrepancy. Does stretch and exercise daily. Treatment Goals Patient/Caregiver be able to SUP, mtn bike, hike, golf Goals PT-OP-C Subjective Start: 02/17/25 17:48 Freq: Status: Active Protocol: Document 04/01/25 09:31 [facility] (Rec: 04/01/25 09:39 [facility] [id number]) OP-PT Subjective Patient Comments Patient Comments Pt reports she is stiff but did bike 14 miles yesterday . Stiffness in R buttocks PT-OP-D Balance Start: 02/17/25 17:48 Freq: Status: Active Protocol: Document 02/18/25 15:19 [facility] (Rec: 02/18/25 18:47 [facility] [id number]) Balance Tests Single Limb Standing Single Limb- Right >30 sec Single Limb- Left 11 sec PT-OP-G Mobility & Gait Start: 02/17/25 17:48 Freq: Status: Active Protocol: Document 02/18/25 15:19 [facility] (Rec: 02/18/25 18:47 [facility] [id number]) OP Gait Assessment Comments Gait Comments Dec LLE stance time and push off PT-OP-J Posture/Palpation/Skin Start: 02/17/25 17:48 Freq: Status: Active Protocol: Document 03/29/25 07:34 [facility] (Rec: 03/29/25 10:18 [facility] [id number]) Posture Evaluation Hilda Postural Classification System Lumbar Protective 1 Mechanism Left AP Lumbar Protective 1 Mechanism Right AP Lumbar Protective 2 Mechanism Left PA Lumbar Protective 3 Mechanism Right PA PT-OP-K Range of Motion Start: 02/17/25 17:48 Freq: Status: Active Protocol: Document 02/18/25 15:19 [facility] (Rec: 02/18/25 18:47 [facility] [id number]) Lumbar Spine Range of Motion Lumbar Spine Active Percentage Flexion 80 Extension 50 Rotation Left 25 Rotation Right 45 Lateral Flexion Left 50 Lateral Flexion 50 Right Comments pain L B SB, ext PT-OP-L Special Tests Start: 02/17/25 17:48 Freq: Status: Active Protocol: Document 02/18/25 15:19 [facility] (Rec: 02/18/25 18:47 [facility] [id number]) Special Tests Lumbar Spine Special Tests march Test Results positive L Slump Test Results neg B PT-OP-M Strength Start: 02/17/25 17:48 Freq: Status: Active Protocol: Document 03/29/25 07:34 [facility] (Rec: 03/29/25 10:18 [facility] [id number]) Hip Strength Hip Manual Muscle Testing Right Flexion (L2) 5 Normal Extension (S1) 5 Normal Abduction 5 Normal Adduction 5 Normal External Rotation 5 Normal Internal Rotation 5 Normal Left Flexion (L2) 4 Good Extension (S1) 4 Good Abduction 4+ Good+ Adduction 5 Normal External Rotation 5 Normal Internal Rotation 5 Normal Knee Strength Knee Manual Muscle Testing Right Flexion (S2) 5 Normal Extension (L3) 5 Normal Left Flexion (S2) 5 Normal Extension (L3) 5 Normal PT-OP-Q Treatments Start: 02/17/25 17:48 Freq: Status: Active Protocol: Document 04/01/25 09:31 [facility] (Rec: 04/01/25 09:39 [facility] [id number]) Manual Therapy Treatment Consent Patient gave verbal Yes consent for manual treatment Soft Tissue Mobilization lumbar Body Location R QL and ES w/post dep s/l ant Comments 1. Lat rectus abdominus border B 2. r psoas w/90/90 position 3. inf peracecal ligament OSFM w/LTR 4. Descending colon w/LTR Joint Mobilizations lumbar Comments transverse L4 and 5 L c/r w/pelvic ant elevation innominate Comments R ext and add c/r PT-OP-T Assessment and Plan Start: 02/17/25 17:48 Freq: Status: Active Protocol: Document 04/01/25 09:31 [facility] (Rec: 04/01/25 09:39 [facility] [id number]) Physical Therapy Assessment Goals activities Penitentiary Goal (LTG) Pt will be able to hike, bike, golf and do paddle sports w/o inc L SI or hip pain 03/11-started low level activities 03/29-gradually inc intensity. back pain w/golf LTG Duration 04/29 strength Short Term Goal (STG Pt will be indep w/HEP ) 03/11-advancing as able but compliant on current HEP STG Duration achieved advancing as able Hide Inspector Goal (LTG) Pt will score at least 4+/5 on BLE MMT and at least 3/5 on all planes LPM to show improved stability to allow return to full active lifestyle 03/11-improving 03/29-mostly achieved LTG Duration 04/29 AR Impairment 52% Short Term Goal (STG Pt will improve AR score to no greater than 36 % to ) show improved functional ability. STG Duration 03/28 MET AR 30% 03/09/2025 Hide Inspector Goal (LTG) Pt will improve AR score to no greater than 6% to show improved functional ability. LTG Duration 04/27 Assessment Summary Assessment Pt did well wtih manual with improved R hip ext. Notes feeling looser after manual. Physical Therapy Plan Frequency and Duration Frequency of 2x/Week Treatment Duration of 10 treatment (weeks) Plan of Care Start 02/18/25 Date Plan of Care End 04/29/25 Date Next Visit Focus/Plan Next Note Type Discharge Summary Next Visit Plan work on spinal, hip and visceral mobility for improved functional mobility
--- NOTE | 2025-04-06 16:32 | PT.OTN ---
Current Diagnoses Hyperlipidemia, unspecified (04/06/25) Cyst of pancreas (04/06/25) Other specified disorders of bone density and structure, unspecified site (04/06/25) Strain of muscle, fascia and tendon of lower back, initial encounter (04/06/25) Physical Therapy Treatment Note PT-OP-A Visit Information Start: 02/17/25 17:48 Freq: Status: Active Protocol: Document 04/06/25 07:31 [facility] (Rec: 04/06/25 16:32 [facility] [id number]) Out-Patient Physical Therapy Visit Information Visit Information Visit Type Discharge Summary Visit Start Time 07:34 Visit Stop Time 08:14 Visit Number 10 Number of MECHANICAL PROJECT MANAGER Visits 0 PT-OP-B Current Condition Start: 02/17/25 17:48 Freq: Status: Active Protocol: Document 02/18/25 15:19 [facility] (Rec: 02/18/25 18:47 [facility] [id number]) Current Condition History of Current Condition Onset Date 1 week ago Current Complaints L hip pain History of Current Pt skiied over 650 miles [place] this season. IT gets mushy Condition at the end of the season. L leg is shorter. Was trying to use R side more because typically doesn't use it. She went golfing then drove from [facility] and had inc pain when woke up here. She had a massage and it was better initially but the day after was worse. pain was in L hip and had migrated to ant hip. Went to the ER and Gave pain meds/anti nausea meds and urine testing, imaging and sent home. saw primary and he wasn 't worried about the cyst on pancreas. Stopped hydrocodone d/t making her feel like a zombie and taking 500mg Naproxen and feels better. Has been to the chiro 2x. Hx SI pain but typically on R side but not as severe. Broke L leg 2x (fibula one time '99 and tibia other time '01). Has been sleeping most of the week and heating because it seems to help. Ice doesn't seem to help. Wears a 1/4 in lift for measured discrepancy. Does stretch and exercise daily. Treatment Goals Patient/Caregiver be able to SUP, mtn bike, hike, golf Goals PT-OP-C Subjective Start: 02/17/25 17:48 Freq: Status: Active Protocol: Document 04/06/25 07:31 [facility] (Rec: 04/06/25 16:32 [facility] [id number]) OP-PT Subjective Patient Comments Patient Comments no issues except crown broke off. She is working with a hop trainer to create a program for 2 months. When wakes up, still feels tightness in glutes. DIdn't do anything much yesterday. PT-OP-D Balance Start: 02/17/25 17:48 Freq: Status: Active Protocol: Document 02/18/25 15:19 [facility] (Rec: 02/18/25 18:47 [facility] [id number]) Balance Tests Single Limb Standing Single Limb- Right >30 sec Single Limb- Left 11 sec PT-OP-G Mobility & Gait Start: 02/17/25 17:48 Freq: Status: Active Protocol: Document 02/18/25 15:19 [facility] (Rec: 02/18/25 18:47 [facility] [id number]) OP Gait Assessment Comments Gait Comments Dec LLE stance time and push off PT-OP-J Posture/Palpation/Skin Start: 02/17/25 17:48 Freq: Status: Active Protocol: Document 03/29/25 07:34 [facility] (Rec: 03/29/25 10:18 [facility] [id number]) Posture Evaluation Hilda Postural Classification System Lumbar Protective 1 Mechanism Left AP Lumbar Protective 1 Mechanism Right AP Lumbar Protective 2 Mechanism Left PA Lumbar Protective 3 Mechanism Right PA PT-OP-K Range of Motion Start: 02/17/25 17:48 Freq: Status: Active Protocol: Document 02/18/25 15:19 [facility] (Rec: 02/18/25 18:47 [facility] [id number]) Lumbar Spine Range of Motion Lumbar Spine Active Percentage Flexion 80 Extension 50 Rotation Left 25 Rotation Right 45 Lateral Flexion Left 50 Lateral Flexion 50 Right Comments pain L B SB, ext PT-OP-L Special Tests Start: 02/17/25 17:48 Freq: Status: Active Protocol: Document 02/18/25 15:19 [facility] (Rec: 02/18/25 18:47 [facility] [id number]) Special Tests Lumbar Spine Special Tests march Test Results positive L Slump Test Results neg B PT-OP-M Strength Start: 02/17/25 17:48 Freq: Status: Active Protocol: Document 03/29/25 07:34 [facility] (Rec: 03/29/25 10:18 [facility] [id number]) Hip Strength Hip Manual Muscle Testing Right Flexion (L2) 5 Normal Extension (S1) 5 Normal Abduction 5 Normal Adduction 5 Normal External Rotation 5 Normal Internal Rotation 5 Normal Left Flexion (L2) 4 Good Extension (S1) 4 Good Abduction 4+ Good+ Adduction 5 Normal External Rotation 5 Normal Internal Rotation 5 Normal Knee Strength Knee Manual Muscle Testing Right Flexion (S2) 5 Normal Extension (L3) 5 Normal Left Flexion (S2) 5 Normal Extension (L3) 5 Normal PT-OP-Q Treatments Start: 02/17/25 17:48 Freq: Status: Active Protocol: Document 04/06/25 07:31 [facility] (Rec: 04/06/25 16:32 [facility] [id number]) Therapeutic Activity Therapeutic Activity posture Reps/Minutes 8 min Comments working on posture and need for shoe lift on L, used LPM to determine height. 10/21 in went well for pt and she will attempt to place in shoe Manual Therapy Treatment Consent Patient gave verbal Yes consent for manual treatment Soft Tissue Mobilization bilateral glute/piriformis Body Location R glute/piriformis/TFL Mobilization Type Rolling,Sustained Pressure Intensity/Depth Moderate Body Position Sidelying Comments w/bad lumbar Body Location B ES Comments w/ant elevation Joint Mobilizations lumbar Comments transverse L L4 and 5 c/r hip abd R innominate Comments R abd c/r hip Comments R abd c/r PT-OP-T Assessment and Plan Start: 02/17/25 17:48 Freq: Status: Active Protocol: Document 04/06/25 07:31 [facility] (Rec: 04/06/25 16:32 [facility] [id number]) Physical Therapy Assessment Goals activities Long-Term Goal (LTG) Pt will be able to hike, bike, golf and do paddle sports w/o inc L SI or hip pain 03/11-started low level activities 03/29-gradually inc intensity. back pain w/golf LTG Duration achieved with some pain w/golf strength Short Term Goal (STG Pt will be indep w/HEP ) 03/11-advancing as able but compliant on current HEP STG Duration achieved advancing as able Commercial Real Estate Agent Goal (LTG) Pt will score at least 4+/5 on BLE MMT and at least 3/5 on all planes LPM to show improved stability to allow return to full active lifestyle 03/11-improving 03/29-mostly achieved LTG Duration 04/29-mostly achieved AR Impairment 52% Short Term Goal (STG Pt will improve AR score to no greater than 36 % to ) show improved functional ability. STG Duration 03/28 MET AR 30% 03/09/2025 Long-Term Goal (LTG) Pt will improve AR score to no greater than 6% to show improved functional ability. LTG Duration 04/27 Assessment Summary Assessment Pt dc d/t meeting most goals. AR not tested but pt back to long bike rides, going for walks and has been doing functional activities. Much improved strength and pt is indep w/HEP and cont to exercises and work with hop trainer. DC to HEP at this time. Physical Therapy Plan Discharge Physical Therapy Discharge Reasons Goals Met
== END 2025-04-08 09:38 | disposition home or self-care (01) ==
LOC: PHYS 07:30
PROVIDERS: Family Provider Family Medicine; PCP Family Medicine; Referring Provider Family Medicine; Visit Provider Family Medicine
DX: S39.012A Strain of muscle, fascia and tendon of lower back, initial encounter (principal); M85.80 Other specified disorders of bone density and structure, unspecified site; E78.5 Hyperlipidemia, unspecified; K86.2 Cyst of pancreas
CPT/HCPCS: 97110; 97112; 97140; 97162; 97530; 97535